=== PATIENT | female | born 1990 | race Two or more races ===

== ENCOUNTER 2017-01-17 18:53 | Emergency (ER) | payer SELFPAY ==
[~2017-01-17] VITALS: Ht 160 cm; Wt 86.2 kg
[~2017-01-17 18:53] MED LIST: CEPH-264 PO; CIPR500T94 PO; HYDR-971 PO; NAPR500T8 PO; PHEN-318 PO; PNV1TABL25 PO; PROM25TA10 PO; TAMS0.4C97 PO
--- NOTE | 2017-01-17 20:22 | PHYS DOC ---
Past Medical History Past Medical History: No Pertinent History, UTI Past Surgical History: No Surgical History Alcohol Use: None Drug Use: None Adult General Chief Complaint Chief Complaint: NEURO SYMPTOMS/DEFICITS [facility] HPI Patient is a 26 year old presents with right-sided paresthesias to her face and upper shoulder. Patient states the symptoms started yesterday and have progressively gotten worse today. Patient states she feels like her right upper face is numb from a dental procedure. Patient denies any facial weakness or extremity weakness. She denies any chest pain or shortness of breath. Patient has no other complaints. Patient has no history of stroke. Pertinent exam findings: Decreased sensation to her right side of the face forehead sparing and upper right shoulder ED course: 1800: CBC, CMP, CT head 2104: Updated the patient on the lab results and CT results and she states that her numbness on her right face is improving. Recommended admission however the patient declined understanding all risks including and disability related to go home and follow-up with her PCP. Patient states the symptoms are worse she 'll return to the emergency room. Pertinent results: CT the head negative ED decision-making: After reviewing the chart, chief complaint, past medical history, history of present illness, physical exam, lab results, radiology results I do not believe the patient's having an acute CVA or emergent medical contidion requiring further workup and admission at this time. Patient is having paresthesias to right toe the face and right shoulder of unknown significance. On reexamination there seem to be improving and recommended admission however the patient declined understanding all risks including and disability. Recommend patient follow PCP in 1-2 days. Additional verbal discharge instructions were provided to the patient and that if symptoms get worse or any new symptoms arise or worsen to the patient she is return to emergency room immediately. Review of Systems Review of Systems Constitutional: Denies fever or chills [] Eyes: Denies change in visual acuity, redness, or eye pain [] HENT: Denies nasal congestion or sore throat [] Respiratory: Denies cough or shortness of breath [] Cardiovascular: No additional information not addressed in HPI [] GI: Denies abdominal pain, nausea, vomiting, bloody stools or diarrhea [] : Denies dysuria or hematuria [] Musculoskeletal: Denies back pain or joint pain [] Integument: Denies rash or skin lesions [] Neurologic: Paresthesias to the right side of her face and upper extremity Allergies Allergies Allergies Coded Allergies Type Severity Reaction Last Updated Verified No Known Drug Allergies 12/13/14 No Physical Exam Physical Exam Constitutional: Well developed, well nourished, no acute distress, non-toxic appearance. [] HENT: Normocephalic, atraumatic, bilateral external ears normal, oropharynx moist, no oral exudates, nose normal. [] Eyes: PERRLA, EOMI, conjunctiva normal, no discharge. [] Neck: Normal range of motion, no tenderness, supple, no stridor. [] Cardiovascular:Heart rate regular rhythm, no murmur [] Lungs & Thorax: Bilateral breath sounds clear to auscultation [] Abdomen: Bowel sounds normal, soft, no tenderness, no masses, no pulsatile masses. [] Skin: Warm, dry, no erythema, no rash. [] Back: No tenderness, no CVA tenderness. [] Extremities: No tenderness, no cyanosis, no clubbing, ROM intact, no edema. [] Neurologic: Alert and oriented X 3, normal motor function, Decreased sensation to her right side of the face forehead sparing and upper right shoulder, no focal deficits noted. [] Psychologic: Affect normal, judgement normal, mood normal. [] Current Patient Data Vital Signs Vital Signs Date Time Temp Pulse Resp B/P (MAP) Pulse Ox O2 Delivery O2 Flow Rate FiO2 01/17/17 21:10 86 136/68 (90) 100 01/17/17 20:13 Room Air 01/17/17 19:30 98.2 18 98.2 Lab Values Laboratory Tests Test 01/17/17 18:50 01/17/17 19:40 01/17/17 19:46 POC Urine HCG, Qualitative Hcg negative (Negative) Urine Collection Type Unknown Urine Color Yellow Urine Clarity Clear Urine pH 7.5 Urine Specific Boyle 1.010 Urine Protein Negative mg/dL (NEG-TRACE) Urine Glucose (UA) Negative mg/dL (NEG) Urine Ketones (Stick) Negative mg/dL (NEG) Urine Blood Negative (NEG) Urine Nitrite Negative (NEG) Urine Bilirubin Negative (NEG) Urine Urobilinogen Dipstick 0.2 mg/dL (0.2 mg/dL) Urine Leukocyte Esterase Moderate (NEG) Urine RBC 0 /HPF (0-2) Urine WBC 11-20 /HPF (0-4) Urine Squamous Epithelial Cells Many /LPF Urine Bacteria Many /HPF (0-FEW) White Blood Count 10.5 x10^3/uL (4.0-11.0) Red Blood Count 4.56 x10^6/uL (3.50-5.40) Hemoglobin 13.4 g/dL (12.0-15.5) Hematocrit 39.0 % (36.0-47.0) Mean Corpuscular Volume 86 fL (79-100) Mean Corpuscular Hemoglobin 29 pg (25-35) Mean Corpuscular Hemoglobin Concent 34 g/dL (31-37) Red Cell Distribution Width 14.7 % (11.5-14.5) H Platelet Count 293 x10^3/uL (140-400) Neutrophils (%) (Auto) 61 % (31-73) Lymphocytes (%) (Auto) 30 % (24-48) Monocytes (%) (Auto) 6 % (0-9) Eosinophils (%) (Auto) 3 % (0-3) Basophils (%) (Auto) 0 % (0-3) Neutrophils # (Auto) 6.4 x10^3uL (1.8-7.7) Lymphocytes # (Auto) 3.2 x10^3/uL (1.0-4.8) Monocytes # (Auto) 0.6 x10^3/uL (0.0-1.1) Eosinophils # (Auto) 0.3 x10^3/uL (0.0-0.7) Basophils # (Auto) 0.0 x10^3/uL (0.0-0.2) Sodium Level 139 mmol/L (136-145) Potassium Level 3.7 mmol/L (3.5-5.1) Chloride Level 103 mmol/L (98-107) Carbon Dioxide Level 25 mmol/L (21-32) Anion Gap 11 (6-14) Blood Urea Nitrogen 7 mg/dL (7-20) Creatinine 0.9 mg/dL (0.6-1.0) Estimated GFR (Cockcroft-Gault) 75.7 BUN/Creatinine Ratio 8 (6-20) Glucose Level 93 mg/dL (70-99) Calcium Level 9.0 mg/dL (8.5-10.1) Total Bilirubin 0.4 mg/dL (0.2-1.0) Aspartate Amino Transferase (AST) 18 U/L (15-37) Alanine Aminotransferase (ALT) 34 U/L (14-59) Alkaline Phosphatase 62 U/L (46-116) Total Protein 8.0 g/dL (6.4-8.2) Albumin 4.1 g/dL (3.4-5.0) Albumin/Globulin Ratio 1.1 (1.0-1.7) Laboratory Tests 01/17/17 19:46 Laboratory Tests 01/17/17 19:46 Microbiology 01/17/17 Urine Culture - Preliminary, Resulted 01/17/17 Urine Culture Result 1 (BRYCE) - Preliminary, Resulted EKG EKG [] Radiology/Procedures Radiology/Procedures CT head: FINDINGS no intracranial hemorrhage, mass, hydrocephalus, extra-axial fluid collections or infarction. No acute ischemic changes. Orbits, mastoids, paranasal sinuses and bones are unremarkable. IMPRESSION No acute intracranial CT abnormality. [] Course & Med Decision Making Course & Med Decision Making Pertinent Labs and Imaging studies reviewed. (See chart for details) [] Dragon Disclaimer Dragon Disclaimer This electronic medical record was generated, in whole or in part, using a voice recognition dictation system. Departure Departure Impression: Primary Impression: Paresthesias Disposition: 01 HOME, SELF-CARE Condition: IMPROVED Referrals: NO PCP (PCP) Patient Instructions: Paresthesia, [id number] Additional Instructions: Please follow-up with her doctor in 1-2 days and his symptoms get worse please return to emergency room immediately. TONI GUZMAN DO January 17, 2017 20:22
[2017-01-17 20:24] LABS: BASO % 0 % (0-3); EOS % 3 % (0-3); HEMOGLOBIN 13.4 g/dL (12.0-15.5); LYMPH # 3.2 x10^3/uL (1.0-4.8); LYMPH % 30 % (24-48); MEAN CORPUSCULAR HEMOGLOBIN 29 pg (25-35); MEAN CORPUSCULAR HGB CONC 34 g/dL (31-37); MEAN CORPUSCULAR VOLUME 86 fL (79-100); MONO % 6 % (0-9); NEUT % 61 % (31-73); PLATELET COUNT 293 x10^3/uL (140-400); RED BLOOD COUNT 4.56 x10^6/uL (3.50-5.40); RED CELL DISTRIBUTION WIDTH 14.7 % (11.5-14.5); WHITE BLOOD COUNT 10.5 x10^3/uL (4.0-11.0)
[2017-01-17 20:25] LABS: BILIRUBIN,URINE NEGATIVE (NEG); GLUCOSE,URINE NEGATIVE (NEG); NITRITE,URINE NEGATIVE (NEG); PH,URINE 7.5; PROTEIN,URINE NEGATIVE (NEG-TRACE); UROBILINOGEN,URINE 0.2 mg/dL (0.2 mg/dL)
[2017-01-17 20:32] LABS: CREATININE 0.9 mg/dL (0.6-1.0); GFR 75.7; POTASSIUM 3.7 mmol/L (3.5-5.1)
[2017-01-17 20:33] LABS: BACTERIA,URINE MANY /HPF (0-FEW); RBC,URINE 0 /HPF (0-2); SQUAMOUS EPITHELIAL CELL,UR MANY /LPF
[2017-01-17 20:36] LABS: ALBUMIN 4.1 g/dL (3.4-5.0); ALBUMIN/GLOBULIN RATIO 1.1 (1.0-1.7); TOTAL BILIRUBIN 0.4 mg/dL (0.2-1.0)
--- NOTE | 2017-01-17 20:37 | RAD ---
PROCEDURE CT head without contrast HISTORY Right side paresthesias TECHNIQUE Exposure: One or more of the following individualized dose reduction techniques were utilized for this exam: 1. Automated exposure control. 2. Adjustment of the mA and/or kV according to patient size. 3. Use of iterative reconstruction technique. [address] imaging skullbase to vertex COMPARISON No prior FINDINGS no intracranial hemorrhage, mass, hydrocephalus, extra-axial fluid collections or infarction. No acute ischemic changes. Orbits, mastoids, paranasal sinuses and bones are unremarkable. IMPRESSION No acute intracranial CT abnormality. Electronically signed by: Rubio Duran MD (January 17, 2017 20:36:23)
[2017-01-17 21:10] VITALS: BP 136/68
== END 2017-01-17 21:33 | disposition home or self-care (01) ==
LOC: ER 18:53
DX: R20.9 Unspecified disturbances of skin sensation (principal)
CPT/HCPCS: 36415; 70450; 80053; 81001; 81025; 84703; 85027; 87086; 99285-25

== ENCOUNTER 2017-05-18 20:27 | Emergency (ER) | payer SELFPAY ==
[~2017-05-18] VITALS: Ht 157.5 cm; Wt 95.7 kg
[2017-05-18] MEDS ORDERED: IV NORMAL SALINE 1000ML BAG 1,000 ML IV ONE ×2 (21:15→22:45)
[2017-05-18] MEDS ORDERED: DEXAMETHASONE SOD PHOS 20 MG/5 ML VIAL. IM ONE (21:30)
[2017-05-18] MEDS ORDERED: AZITHRMYCN 500MG IVPB FOR OMNI 250 ML IV ONE (21:30)
--- NOTE | 2017-05-18 21:47 | PHYS DOC ---
Past Medical History Past Medical History: No Pertinent History, UTI Past Surgical History: No Surgical History Alcohol Use: None Drug Use: None Adult General Chief Complaint Chief Complaint: MULTIPLE COMPLAINTS HPI HPI Patient is a 26 year old female who presents with sore throat. She states this started yesterday. She states is very difficult for her to swallow anything. She denies any trismus, she states she's felt feverish at home however she's not taken her temperature. She denies any nausea or vomiting. She states it's difficult for her to eat anything. She is swallowing her own saliva. Denies any past medical history, allergies medications are currently on any medications. Review of Systems Review of Systems Constitutional: Denies fever or chills [] Eyes: Denies change in visual acuity, redness, or eye pain [] HENT: Denies nasal congestion or positive for sore throat [] Respiratory: Denies cough or shortness of breath [] Cardiovascular: No additional information not addressed in HPI [] GI: Denies abdominal pain, nausea, vomiting, bloody stools or diarrhea [] : Denies dysuria or hematuria [] Musculoskeletal: Denies back pain or joint pain [] Integument: Denies rash or skin lesions [] Neurologic: Denies headache, focal weakness or sensory changes [] Endocrine: Denies polyuria or polydipsia [] Current Medications Current Medications Current Medications Medications (Trade) Dose Ordered Sig/Bigg Start Time Stop Time Status Last Admin Dose Admin Azithromycin 250 ml @ 250 mls/hr 1X ONCE 05/18/17 21:30 05/18/17 22:29 DC 05/18/17 21:39 250 MLS/HR Dexamethasone Sodium Phosphate (Decadron) 10 mg 1X ONCE 05/18/17 21:30 05/18/17 21:31 DC 05/18/17 21:39 10 MG Info (Do NOT chart on this entry -- for MONITORING) 1 each PRN DAILY PRN 05/19/17 00:15 05/21/17 00:14 Iohexol (Omnipaque 300 Mg/ml) 70 ml 1X ONCE 05/19/17 00:15 05/19/17 00:16 DC 05/19/17 00:13 70 ML Ondansetron HCl (Zofran) 4 mg 1X ONCE 05/18/17 23:15 05/18/17 23:16 DC 05/18/17 23:07 4 MG Sodium Chloride 1,000 ml @ 1,000 mls/hr 1X ONCE 05/18/17 22:45 05/18/17 23:44 DC 05/18/17 23:04 1,000 MLS/HR Allergies Allergies Allergies Coded Allergies Type Severity Reaction Last Updated Verified No Known Drug Allergies 12/13/14 No Physical Exam Physical Exam Constitutional: Well developed, well nourished, no acute distress, non-toxic appearance. [] HENT: Normocephalic, atraumatic, bilateral external ears normal, oropharynx moist, no oral exudates, nose normal. Bilateral tonsils enlarged with white exudates noted in posterior pharynx Eyes: PERRLA, EOMI, conjunctiva normal, no discharge. [] Neck: Normal range of motion, no tenderness, supple, no stridor. Anterior cervical lymphadenopathy noted Cardiovascular:Heart rate regular rhythm, no murmur [] Lungs & Thorax: Bilateral breath sounds clear to auscultation [] Abdomen: Bowel sounds normal, soft, no tenderness, no masses, no pulsatile masses. [] Skin: Warm, dry, no erythema, no rash. [] Back: No tenderness, no CVA tenderness. [] Extremities: No tenderness, no cyanosis, no clubbing, ROM intact, no edema. [] Neurologic: Alert and oriented X 3, normal motor function, normal sensory function, no focal deficits noted. [] Psychologic: Affect normal, judgement normal, mood normal. [] Current Patient Data Vital Signs Vital Signs Date Time Temp Pulse Resp B/P (MAP) Pulse Ox O2 Delivery O2 Flow Rate FiO2 05/19/17 00:11 114 149/76 (100) Room Air 05/18/17 23:35 99 05/18/17 23:05 98.9 18 98.9 Lab Values Laboratory Tests Test 05/18/17 19:54 05/18/17 20:43 POC Urine HCG, Qualitative Hcg negative (Negative) White Blood Count 26.9 x10^3/uL (4.0-11.0) H Red Blood Count 4.63 x10^6/uL (3.50-5.40) Hemoglobin 13.0 g/dL (12.0-15.5) Hematocrit 39.9 % (36.0-47.0) Mean Corpuscular Volume 86 fL (79-100) Mean Corpuscular Hemoglobin 28 pg (25-35) Mean Corpuscular Hemoglobin Concent 33 g/dL (31-37) Red Cell Distribution Width 15.3 % (11.5-14.5) H Platelet Count 234 x10^3/uL (140-400) Neutrophils (%) (Auto) 89 % (31-73) H Lymphocytes (%) (Auto) 4 % (24-48) L Monocytes (%) (Auto) 7 % (0-9) Eosinophils (%) (Auto) 0 % (0-3) Basophils (%) (Auto) 0 % (0-3) Neutrophils # (Auto) 23.9 x10^3uL (1.8-7.7) H Lymphocytes # (Auto) 1.1 x10^3/uL (1.0-4.8) Monocytes # (Auto) 1.8 x10^3/uL (0.0-1.1) H Eosinophils # (Auto) 0.1 x10^3/uL (0.0-0.7) Basophils # (Auto) 0.1 x10^3/uL (0.0-0.2) Segmented Neutrophils % 58 % (35-66) Band Neutrophils % 30 % (0-9) H Lymphocytes % 10 % (24-48) L Monocytes % 2 % (0-10) Platelet Estimate Adequate (ADEQUATE) Sodium Level 138 mmol/L (136-145) Potassium Level 4.6 mmol/L (3.5-5.1) Chloride Level 101 mmol/L (98-107) Carbon Dioxide Level 22 mmol/L (21-32) Anion Gap 15 (6-14) H Blood Urea Nitrogen 7 mg/dL (7-20) Creatinine 0.7 mg/dL (0.6-1.0) Estimated GFR (Cockcroft-Gault) 101.1 BUN/Creatinine Ratio 10 (6-20) Glucose Level 122 mg/dL (70-99) H Calcium Level 9.2 mg/dL (8.5-10.1) Total Bilirubin 0.7 mg/dL (0.2-1.0) Aspartate Amino Transferase (AST) 30 U/L (15-37) Alanine Aminotransferase (ALT) 40 U/L (14-59) Alkaline Phosphatase 84 U/L (46-116) Total Protein 7.7 g/dL (6.4-8.2) Albumin 4.0 g/dL (3.4-5.0) Albumin/Globulin Ratio 1.1 (1.0-1.7) Laboratory Tests 05/18/17 20:43 Laboratory Tests 05/18/17 20:43 EKG EKG [] Radiology/Procedures Radiology/Procedures [facility] [address] [place] [address] IMAGING REPORT Signed PATIENT: YOLY DANG ACCOUNT: [id number] : 1990 LOCATION: ER AGE: 26 SEX: F EXAM STATUS: REG ER ORD. PHYSICIAN: THALIA WHITLEY MD REASON: sore throat PROCEDURE: CT SOFT TISSUE NECK W/CONTRAST INDICATION: sore throat; Omni 300, 70ml COMPARISON: None. TECHNIQUE: Axial CT images obtained through the neck soft tissues with contrast. One or more of the following individualized dose reduction techniques were utilized for this examination: 1. Automated exposure control; 2. Adjustment of the mA and/or kV according to patient size; 3. Use of iterative reconstruction technique. FINDINGS: No prevertebral soft tissue swelling. The epiglottis is not enlarged. There are some scattered prominent lymph nodes within the neck. Enlargement of the pharyngeal and palatine tonsils with narrowing of the airway. There is near complete effacement of the oropharynx/nasopharynx region secondary to enlarged tonsil. No definite drainable fluid collection at this time IMPRESSION: Enlargement of the tonsils which can be seen with tonsillitis or tonsillar hyperplasia. No definite drainable fluid collection at this time. This causes narrowing of the airway and near complete effacement of the nasopharynx/oropharynx. Electronically signed by: Rina Jung MD (05/19/2017 12:39 AM) [facility] DICTATED and SIGNED BY: RINA JUNG MD DATE: 05/19/17 0027 CC: THALIA WHITLEY MD; NO PCP ~ Impressions: Tonsillitis Course & Med Decision Making Course & Med Decision Making Pertinent Labs and Imaging studies reviewed. (See chart for details) Patient is a fever but she's been taking Tylenol. She is tachycardic she received 2 L of fluids and her tachycardia has not resolved. She does have leukocytosis of 27,000 with bands. I scanned her neck to make sure there was an abscess and it shows near touching of her tonsils I spoke with radiology she states that if it does get worse she will have compromise of her airway. We do not have ENT at this facility I therefore spoke with [facility] is accepting the patient. The patient being transferred via EMS in stable condition. She has received 10 mg Decadron in addition to 500 mg azithromycin and was watched for close to 4 hours for a side transfer her, secondary to her not improving as much is anticipated. She is handling her secretions. Dragon Disclaimer Dragon Disclaimer This electronic medical record was generated, in whole or in part, using a voice recognition dictation system. Departure Departure Impression: Primary Impression: Tonsillitis Disposition: 02 TRANSFER [facility] Condition: STABLE Referrals: NO PCP (PCP) THALIA WHITLEY MD May 18, 2017 21:46
[2017-05-18] MEDS ORDERED: ONDANSETRON PF 4 MG/2 ML VIAL. ONE (22:39)
[2017-05-18 22:58] LABS: BASO # 0.1 x10^3/uL (0.0-0.2); BASO % 0 % (0-3); EOS % 0 % (0-3); HEMATOCRIT 39.9 % (36.0-47.0); LYMPH # 1.1 x10^3/uL (1.0-4.8); LYMPH % 4 % (24-48); MEAN CORPUSCULAR HEMOGLOBIN 28 pg (25-35); MEAN CORPUSCULAR HGB CONC 33 g/dL (31-37); MEAN CORPUSCULAR VOLUME 86 fL (79-100); MONO % 7 % (0-9); NEUT % 89 % (31-73); PLATELET COUNT 234 x10^3/uL (140-400); RED BLOOD COUNT 4.63 x10^6/uL (3.50-5.40); RED CELL DISTRIBUTION WIDTH 15.3 % (11.5-14.5); WHITE BLOOD COUNT 26.9 x10^3/uL (4.0-11.0)
[2017-05-18 23:12] LABS: CALCIUM 9.2 mg/dL (8.5-10.1); CREATININE 0.7 mg/dL (0.6-1.0); GFR 101.1; POTASSIUM 4.6 mmol/L (3.5-5.1)
[2017-05-18 23:14] LABS: ALBUMIN/GLOBULIN RATIO 1.1 (1.0-1.7); TOTAL BILIRUBIN 0.7 mg/dL (0.2-1.0); TOTAL PROTEIN 7.7 g/dL (6.4-8.2)
[2017-05-18] MEDS ORDERED: ONDANSETRON PF 4 MG/2 ML VIAL. IV ONE (23:15)
[2017-05-18 23:18] LABS: PLT ESTIMATE ADEQUATE (ADEQUATE)
[2017-05-19] MEDS ORDERED: IOHEXOL 300 MG/ML 75 ML VIAL IV ONE (00:15)
[2017-05-19] MEDS ORDERED: CONTRAST GIVEN MC PRN (00:15)
--- NOTE | 2017-05-19 00:43 | RAD ---
INDICATION: sore throat; Omni 300, 70ml COMPARISON: None. TECHNIQUE: Axial CT images obtained through the neck soft tissues with contrast. One or more of the following individualized dose reduction techniques were utilized for this examination: 1. Automated exposure control; 2. Adjustment of the mA and/or kV according to patient size; 3. Use of iterative reconstruction technique. FINDINGS: No prevertebral soft tissue swelling. The epiglottis is not enlarged. There are some scattered prominent lymph nodes within the neck. Enlargement of the pharyngeal and palatine tonsils with narrowing of the airway. There is near complete effacement of the oropharynx/nasopharynx region secondary to enlarged tonsil. No definite drainable fluid collection at this time IMPRESSION: Enlargement of the tonsils which can be seen with tonsillitis or tonsillar hyperplasia. No definite drainable fluid collection at this time. This causes narrowing of the airway and near complete effacement of the nasopharynx/oropharynx. Electronically signed by: Nate Jung MD (05/19/2017 12:39 AM) [facility]
[2017-05-19 01:00] VITALS: BP 177/82
[2017-05-19 10:15] LABS: NEGATIVE OBC STREP NEG; POSITIVE OBC STREP POS
== END 2017-05-19 02:31 | disposition short-term general hospital (02) ==
LOC: ER 20:27
DX: J03.90 Acute tonsillitis, unspecified (principal); R00.0 Tachycardia, unspecified; D72.829 Elevated white blood cell count, unspecified
CPT/HCPCS: 36415; 70491; 80053; 81025; 85007; 85025; 87070; 87880; 96365; 96372; 96375; 99285; J0456; J1100; J2405; J7030; Q9967; 96361

== ENCOUNTER 2018-02-17 18:08 | Inpatient (IN) | payer SELFPAY ==
[2018-02-17 19:52] LABS: ADD MAN DIFF? NO
[2018-02-17 19:57] LABS: BILIRUBIN,URINE NEGATIVE (NEG); CLARITY,URINE CLEAR; COLOR,URINE YELLOW; GLUCOSE,URINE NEGATIVE (NEG); NITRITE,URINE NEGATIVE (NEG); PROTEIN,URINE 30 mg/dL (NEG-TRACE); UROBILINOGEN,URINE 0.2 mg/dL (0.2 mg/dL)
[2018-02-17 19:58] LABS: BASO # 0.1 x10^3/uL (0.0-0.2); BASO % 1 % (0-3); EOS # 0.2 x10^3/uL (0.0-0.7); EOS % 2 % (0-3); HEMATOCRIT 28.9 % (36.0-47.0); HEMOGLOBIN 9.7 g/dL (12.0-15.5); LYMPH % 22 % (24-48); MEAN CORPUSCULAR HEMOGLOBIN 27 pg (25-35); MEAN CORPUSCULAR HGB CONC 33 g/dL (31-37); MEAN CORPUSCULAR VOLUME 80 fL (79-100); MONO # 0.7 x10^3/uL (0.0-1.1); MONO % 7 % (0-9); NEUT # 6.4 x10^3uL (1.8-7.7); NEUT % 68 % (31-73); PLATELET COUNT 323 x10^3/uL (140-400); RED CELL DISTRIBUTION WIDTH 15.9 % (11.5-14.5); WHITE BLOOD COUNT 9.4 x10^3/uL (4.0-11.0)
[2018-02-17 20:03] LABS: BACTERIA,URINE MODERATE /HPF (0-FEW); RBC,URINE TNTC /HPF (0-2); SQUAMOUS EPITHELIAL CELL,UR MOD /LPF; WBC,URINE >40 /HPF (0-4)
[2018-02-17 20:17] LABS: ANION GAP 11 (6-14); BLOOD UREA NITROGEN 15 mg/dL (7-20); BUN/CREATININE RATIO 17 (6-20); CALCIUM 9.1 mg/dL (8.5-10.1); CARBON DIOXIDE 23 mmol/L (21-32); CHLORIDE 108 mmol/L (98-107); CREATININE 0.9 mg/dL (0.6-1.0); GFR 75.1; GLUCOSE 88 mg/dL (70-99); SODIUM 142 mmol/L (136-145)
[2018-02-17 20:26] LABS: ALBUMIN 2.7 g/dL (3.4-5.0); ALBUMIN/GLOBULIN RATIO 0.6 (1.0-1.7); ALK PHOS 74 U/L (46-116); ALT (SGPT) 36 U/L (14-59); AST (SGOT) 14 U/L (15-37); LACTATE DEHYDROGENASE 171 U/L (81-234); TOTAL BILIRUBIN 0.2 mg/dL (0.2-1.0); TOTAL PROTEIN 7.3 g/dL (6.4-8.2); URIC ACID 6.2 mg/dL (2.6-6.0)
[2018-02-17] MEDS: MORPHINE SULFATE 4 MG/ML DISP.SYRIN. IV ×2 (20:49→22:00)
[2018-02-17] MEDS: MAGNESIUM SULFATE 4GM 100 ML IV (20:49)
[2018-02-17] MEDS: IV NORMAL SALINE 500ML BAG 500 ML IV (20:58)
[2018-02-17] MEDS ORDERED: CONTRAST GIVEN. MC (21:00)
[2018-02-17] MEDS: IOHEXOL 300 MG/ML 100ML VIAL. IV (21:30)
[2018-02-17] MEDS ORDERED: MORPHINE SULFATE 4 MG/ML DISP.SYRIN. IV (21:30)
[2018-02-17] MEDS ORDERED: ONDANSETRON PF 4 MG/2 ML VIAL. IV (21:30)
[2018-02-17 21:51] LABS: TROPONINI < 0.017 ng/mL (0.000-0.055)
[2018-02-17 21:55] LABS: NT-PRO BNP 218 pg/mL (0-124)
[2018-02-17] MEDS ORDERED: MAGNESIUM SULFATE 4GM 100 ML IV (22:00)
[2018-02-17] MEDS: ACETAMINOPHEN 325 MG TABLET. PO (22:21)
[2018-02-17] MEDS ORDERED: MAGNESIUM SULFATE 2GM 50 ML IV (22:30)
[2018-02-17] MEDS: IV NORMAL SALINE 1000ML BAG 1,000 ML IV (22:48)
[2018-02-17] MEDS: MAGNESIUM SULFATE 20GM 500 ML IV (22:48)
[2018-02-18] MEDS: ACETAMINOPHEN 325 MG TABLET. PO ×2 (04:00→17:54)
[2018-02-18 04:46] LABS: ADD MAN DIFF? NO
[2018-02-18 04:52] LABS: BASO % 0 % (0-3); EOS # 0.2 x10^3/uL (0.0-0.7); EOS % 3 % (0-3); HEMATOCRIT 26.9 % (36.0-47.0); LYMPH % 25 % (24-48); MEAN CORPUSCULAR HEMOGLOBIN 27 pg (25-35); MEAN CORPUSCULAR HGB CONC 34 g/dL (31-37); MEAN CORPUSCULAR VOLUME 80 fL (79-100); MONO # 0.6 x10^3/uL (0.0-1.1); MONO % 8 % (0-9); NEUT # 5.3 x10^3uL (1.8-7.7); NEUT % 65 % (31-73); PLATELET COUNT 281 x10^3/uL (140-400); RED BLOOD COUNT 3.35 x10^6/uL (3.50-5.40); RED CELL DISTRIBUTION WIDTH 16.1 % (11.5-14.5); WHITE BLOOD COUNT 8.1 x10^3/uL (4.0-11.0)
[2018-02-18 05:34] LABS: ALBUMIN 2.5 g/dL (3.4-5.0); ALBUMIN/GLOBULIN RATIO 0.6 (1.0-1.7); ALK PHOS 67 U/L (46-116); ALT (SGPT) 31 U/L (14-59); ANION GAP 11 (6-14); AST (SGOT) 16 U/L (15-37); BLOOD UREA NITROGEN 12 mg/dL (7-20); BUN/CREATININE RATIO 20 (6-20); CALCIUM 8.2 mg/dL (8.5-10.1); CARBON DIOXIDE 22 mmol/L (21-32); CHLORIDE 106 mmol/L (98-107); CREATININE 0.6 mg/dL (0.6-1.0); GFR 119.9; GLUCOSE 85 mg/dL (70-99); POTASSIUM 3.7 mmol/L (3.5-5.1); SODIUM 139 mmol/L (136-145); TOTAL BILIRUBIN 0.3 mg/dL (0.2-1.0); TOTAL PROTEIN 6.5 g/dL (6.4-8.2)
[2018-02-18] MEDS: oxyCODONE/APAP 5/325 1 TAB TABLET PO ×4 (08:21→19:30)
[2018-02-18] MEDS: MAGNESIUM SULFATE 20GM 500 ML IV ×2 (08:51→19:18)
[2018-02-18] MEDS: IBUPROFEN 800 MG TABLET. PO ×2 (13:54→22:10)
[2018-02-18] MEDS: BENZONATATE 100 MG CAPSULE. PO ×2 (16:22→22:10)
[2018-02-18] MEDS: IV NORMAL SALINE 1000ML BAG 1,000 ML IV (16:24)
[2018-02-19] MEDS: MAGNESIUM SULFATE 20GM 500 ML IV (05:18)
[2018-02-19] MEDS: IBUPROFEN 800 MG TABLET. PO (05:18)
[2018-02-19] MEDS: oxyCODONE/APAP 5/325 1 TAB TABLET PO ×2 (05:19→09:52)
[2018-02-19] MEDS: BENZONATATE 100 MG CAPSULE. PO (10:19)
[2018-02-20 02:19] LABS: HEMOGLOBIN A1C 5.4 % (4.8-5.6)
== END 2018-02-19 13:10 | disposition home or self-care (01) | DRG 776 ==
LOC: ER 18:08 → 3 NORTH 21:10
DX: O14.95 Unspecified pre-eclampsia, complicating the puerperium (principal); E11.9 Type 2 diabetes mellitus without complications; O24.33 Unspecified pre-existing diabetes mellitus in the puerperium
CPT/HCPCS: 36415; 71046; 71275; 80053; 81001; 83036; 83615; 83880; 84484; 84550; 85025; 87086; 93005; 93306; 96365; 99285-25; J2270; J3475; J7030; J7040; Q9967

== ENCOUNTER 2018-02-22 02:00 | Emergency (ER) | payer SELFPAY ==
[2018-02-22 03:31] LABS: ADD MAN DIFF? NO
[2018-02-22 03:36] LABS: BASO % 1 % (0-3); EOS # 0.3 x10^3/uL (0.0-0.7); EOS % 4 % (0-3); HEMATOCRIT 32.6 % (36.0-47.0); HEMOGLOBIN 10.7 g/dL (12.0-15.5); LYMPH # 2.5 x10^3/uL (1.0-4.8); LYMPH % 31 % (24-48); MEAN CORPUSCULAR HEMOGLOBIN 27 pg (25-35); MEAN CORPUSCULAR HGB CONC 33 g/dL (31-37); MEAN CORPUSCULAR VOLUME 81 fL (79-100); MONO # 0.6 x10^3/uL (0.0-1.1); MONO % 8 % (0-9); NEUT # 4.7 x10^3uL (1.8-7.7); NEUT % 57 % (31-73); PLATELET COUNT 352 x10^3/uL (140-400); RED BLOOD COUNT 4.05 x10^6/uL (3.50-5.40); RED CELL DISTRIBUTION WIDTH 16.1 % (11.5-14.5); WHITE BLOOD COUNT 8.2 x10^3/uL (4.0-11.0)
[2018-02-22 03:48] LABS: ANION GAP 12 (6-14); BLOOD UREA NITROGEN 15 mg/dL (7-20); CALCIUM 9.4 mg/dL (8.5-10.1); CARBON DIOXIDE 25 mmol/L (21-32); CHLORIDE 103 mmol/L (98-107); CREATININE 0.9 mg/dL (0.6-1.0); GFR 75.1; GLUCOSE 92 mg/dL (70-99); MAGNESIUM 1.8 mg/dL (1.8-2.4); POTASSIUM 4.4 mmol/L (3.5-5.1); SODIUM 140 mmol/L (136-145)
[2018-02-22] MEDS: MAGNESIUM SULFATE 2GM 50 ML IV (03:52)
[2018-02-22] MEDS: MORPHINE SULFATE 4 MG/ML DISP.SYRIN. IV (03:53)
[2018-02-22 03:56] LABS: TROPONINI < 0.017 ng/mL (0.000-0.055)
[2018-02-22 04:12] LABS: BILIRUBIN,URINE NEGATIVE (NEG); CLARITY,URINE CLEAR; COLOR,URINE YELLOW; GLUCOSE,URINE NEGATIVE (NEG); NITRITE,URINE NEGATIVE (NEG); PH,URINE 6.5; PROTEIN,URINE NEGATIVE (NEG-TRACE); UROBILINOGEN,URINE 0.2 mg/dL (0.2 mg/dL)
[2018-02-22] MEDS: hydrALAZINE 20 MG/ML VIAL. IVP (04:30)
[2018-02-22 04:35] LABS: BACTERIA,URINE FEW /HPF (0-FEW); RBC,URINE RARE /HPF (0-2); SQUAMOUS EPITHELIAL CELL,UR FEW /LPF
[2018-02-22 04:40] LABS: ALBUMIN 3.2 g/dL (3.4-5.0); ALK PHOS 71 U/L (46-116); ALT (SGPT) 37 U/L (14-59); AST (SGOT) 18 U/L (15-37); DIRECT BILIRUBIN < 0.1 mg/dL (0.0-0.2); TOTAL BILIRUBIN 0.2 mg/dL (0.2-1.0); TOTAL PROTEIN 7.5 g/dL (6.4-8.2)
== END 2018-02-22 06:24 | disposition home or self-care (01) ==
LOC: ER 02:00
DX: R07.89 Other chest pain (principal); I10 Essential (primary) hypertension; R60.0 Localized edema; R80.9 Proteinuria, unspecified
CPT/HCPCS: 36415; 71045; 80048; 80076; 81001; 83735; 84484; 85025; 93005; 96365; 96366; 96375; 96376; 99285-25; J2270; J3475

== ENCOUNTER 2018-05-19 21:43 | Emergency (ER) | payer SELFPAY ==
[~2018-05-19] VITALS: Ht 157.5 cm; Wt 95.3 kg
[~2018-05-19 21:43] MED LIST changes: +ONDA4TAB12 PO
[2018-05-19 22:00] VITALS: BP 184/100
[2018-05-19] MEDS ORDERED: PROAIR HFA8.5 GM INH (22:29)
[2018-05-19] MEDS ORDERED: BENZ100C PO (22:29)
[2018-05-19] MEDS ORDERED: AZIT250T6 PO (22:29)
--- NOTE | 2018-05-19 22:30 | PHYS DOC ---
Past Medical History Past Medical History: No Pertinent History, Hypertension, UTI Past Surgical History: Alcohol Use: None Drug Use: None Adult General Chief Complaint Chief Complaint: COUGH HPI HPI Patient is a 27 year old Female who presents with cough, throat pain, chest pain, soa, and fever x 2 weeks. Patient has been using ibuprofen for pain and fever. Review of Systems Review of Systems Constitutional: Fever and chills [] Eyes: Denies change in visual acuity, redness, or eye pain [] HENT: Denies nasal congestion. Sore throat [] Respiratory: Cough and shortness of breath [] Cardiovascular: No additional information not addressed in HPI [] GI: Denies abdominal pain, nausea, vomiting, bloody stools or diarrhea [] : Denies dysuria or hematuria [] Musculoskeletal: Denies back pain or joint pain [] Integument: Denies rash or skin lesions [] Neurologic: Denies headache, focal weakness or sensory changes [] Endocrine: Denies polyuria or polydipsia [] All other systems were reviewed and found to be within normal limits, except as documented in this note. Current Medications Current Medications Current Medications Medications (Trade) Dose Ordered Sig/Bigg Start Time Stop Time Status Last Admin Dose Admin Albuterol/ Ipratropium (Duoneb) 3 ml 1X ONCE 05/19/18 22:30 05/19/18 22:36 DC Dexamethasone (Decadron) 4 mg 1X ONCE 05/19/18 22:30 05/19/18 22:36 DC 05/19/18 23:04 4 MG Allergies Allergies Allergies Coded Allergies Type Severity Reaction Last Updated Verified No Known Drug Allergies 12/13/14 No Physical Exam Physical Exam Constitutional: Well developed, well nourished, no acute distress, non-toxic appearance. [] HENT: Normocephalic, atraumatic, bilateral external ears normal, oropharynx moist, no oral exudates, nose normal. [] Eyes: PERRLA, EOMI, conjunctiva normal, no discharge. [] Neck: Normal range of motion, no tenderness, supple, no stridor. [] Cardiovascular:Heart rate regular rhythm, no murmur [] Lungs & Thorax: Bilateral breath sounds inspiratory and expiratory wheezes throughout. [] Abdomen: Bowel sounds normal, soft, no tenderness, no masses, no pulsatile masses. [] Skin: Warm, dry, no erythema, no rash. [] Back: No tenderness, no CVA tenderness. [] Extremities: No tenderness, no cyanosis, no clubbing, ROM intact, no edema. [] Neurologic: Alert and oriented X 3, normal motor function, normal sensory function, no focal deficits noted. [] Psychologic: Affect normal, judgement normal, mood normal. [] Current Patient Data Vital Signs Vital Signs Date Time Temp Pulse Resp B/P (MAP) Pulse Ox O2 Delivery O2 Flow Rate FiO2 05/19/18 22:00 97.8 74 20 184/100 (128) 98 Room Air 97.8 EKG EKG [] Radiology/Procedures Radiology/Procedures CHEST X RAY[] Impressions: NO ACUTE FINDINGS Course & Med Decision Making Course & Med Decision Making Patient is a 27 year old Female who presents with cough, throat pain, chest pain, soa, and fever x 2 weeks. Patient has been using ibuprofen for pain and fever. Patients last period was in February and she also has the Implanon. Upon examination patient has expiratory wheezes in all lung lobes. Patient speaks in full sentences. Patient denies nausea, vomiting, dizziness, headache, or abdominal pain. Patient throat is pink without exudates. Abdomen is soft and nontender. Bilateral tympanic membranes are pearly white. Patient has no sinus tenderness. There are no palpable lymph nodes. Patient is given [place], dexamethasone, and a DuoNeb in the ED today. Patient is given a prescription for Azithromycin, Tessalon Perles, and albuterol inhaler since her symptoms have been going on x 2 weeks and only getting worse. Patient should follow up with her primary care provider. [] Dragon Disclaimer Dragon Disclaimer This electronic medical record was generated, in whole or in part, using a voice recognition dictation system. Departure Departure Impression: Primary Impression: Bronchitis Disposition: 01 HOME, SELF-CARE Condition: STABLE Referrals: NO PCP (PCP) Patient Instructions: Acute Bronchitis Additional Instructions: Follow up with your primary care. Take all medications as prescribed. Scripts Albuterol Sulfate (PROAIR HFA INHALER) 8.5 Gm Hfa.aer.ad 1 PUFF INH PRN Q6HRS PRN for SHORTNESS OF BREATH for 7 Days, #1 INHALER 0 Refills Prov: NAYELI FREED [employer] 05/19/18 Benzonatate (TESSALON PERLE) 100 Mg Capsule 1 CAP PO TID, #21 CAP Prov: NAYELI FREED APRN 05/19/18 Azithromycin (AZITHROMYCIN TABLET) 250 Mg Tablet 1 PKG PO UD, #6 TAB Prov: NAYELI FREED APRN 05/19/18 NAYELI FREED APRN May 19, 2018 22:30
[2018-05-19] MEDS: DEXAMETHASONE 4 MG TABLET PO ONE (23:04)
--- NOTE | 2018-05-19 23:07 | RAD ---
PROCEDURE: CHEST PA LATERAL CLINICAL INDICATION: DRY COUGH, SOA, FEVER X2 WEEKS COMPARISON: 02/22/2018 FINDINGS: No pneumothorax identified. Cardiac and mediastinal contours unremarkable. No pulmonary consolidation or acute airspace disease. No acute osseous abnormalities identified. IMPRESSION: No pulmonary consolidation or acute airspace disease. Electronically signed by: Dontae Huizar DO (05/19/2018 11:03 PM) [facility]
[2018-05-19] MEDS: IPRATRPIUM/ALBUTEROL 0.5/2.5MG 3 ML NEBU. NEB ONE (23:22)
[2018-05-19] MEDS: HYDROcodone/APAP 5/325MG 1 TAB TABLET PO ONE (23:35)
== END 2018-05-19 23:38 | disposition home or self-care (01) ==
LOC: ER 21:43
DX: J40 Bronchitis, not specified as acute or chronic (principal); R07.0 Pain in throat; I10 Essential (primary) hypertension; Z87.440 Personal history of urinary (tract) infections
CPT/HCPCS: 71046; 94640; 99284; J7620; J8540

== ENCOUNTER 2018-10-23 09:30 | Emergency (ER) | payer SELFPAY ==
[~2018-10-23] VITALS: Ht 160 cm; Wt 95.3 kg
[~2018-10-23 09:30] MED LIST changes: +ALBU2.5V8 INH; +AZIT250T6 PO; +BENZ100C PO; +HYDR-3164 PO; -HYDR-971 PO
[2018-10-23 09:34] VITALS: BP 173/85
[2018-10-23 09:57] LABS: BILIRUBIN,URINE NEGATIVE (NEG); CLARITY,URINE CLEAR; COLOR,URINE YELLOW; NITRITE,URINE NEGATIVE (NEG); PROTEIN,URINE NEGATIVE (NEG-TRACE); UROBILINOGEN,URINE 0.2 mg/dL (0.2 mg/dL)
[2018-10-23 10:18] LABS: SQUAMOUS EPITHELIAL CELL,UR MOD /LPF
[2018-10-23 10:20] LABS: AMORPHOUS SEDIMENT,UR PRESENT /HPF; BACTERIA,URINE MODERATE /HPF (0-FEW)
[2018-10-23] MEDS ORDERED: PHEN100T82 PO (10:35)
[2018-10-23] MEDS ORDERED: CEPH500T PO (10:35)
--- NOTE | 2018-10-23 10:35 | PHYS DOC ---
Past Medical History Past Medical History: Hypertension, UTI (TADEOLORENZO Schmitz APRN) Past Surgical History: Cholecystectomy, (TADEOLORENZO Schmitz APRN) Alcohol Use: None Drug Use: None (KIRSTINLORENZO JOEY) Adult General Chief Complaint Chief Complaint: PAIN ON URINATION [facility] Patient is a 28 year old female with a history of hypertension, UTI, who presents to the ED today complaining of dysuria for 4 days. Patient also complaining of urinary urgency. Denies any frequency. Denies any abdominal pain , denies any nausea vomiting, denies any fever, denies any chance she is , she states she has the Implanon. (LORENZO FULTON NATURAL RESOURCES INSTRUCTOR) Review of Systems Review of Systems Constitutional: Denies fever or chills [] Eyes: Denies change in visual acuity, redness, or eye pain [] HENT: Denies nasal congestion or sore throat [] Respiratory: Denies cough or shortness of breath [] Cardiovascular: No additional information not addressed in HPI [] GI: Denies abdominal pain, nausea, vomiting, bloody stools or diarrhea [] : Reports dysuria and urgency, denies hematuria [] Musculoskeletal: Denies back pain or joint pain [] Integument: Denies rash or skin lesions [] Neurologic: Denies headache, focal weakness or sensory changes [] All other systems were reviewed and found to be within normal limits, except as documented in this note. (LORENZO FULTON APRN) Allergies Allergies Allergies Coded Allergies Type Severity Reaction Last Updated Verified No Known Drug Allergies 12/13/14 No (MAGGIE BELLO MD) Physical Exam Physical Exam Constitutional: Well developed, well nourished, no acute distress, non-toxic appearance. [] HENT: Normocephalic, atraumatic, bilateral external ears normal, oropharynx moist, no oral exudates, nose normal. [] Eyes: PERRLA, EOMI, conjunctiva normal, no discharge. [] Neck: Normal range of motion, no tenderness, supple, no stridor. [] Cardiovascular:Heart rate regular rhythm, no murmur [] Lungs & Thorax: Bilateral breath sounds clear to auscultation [] Abdomen: Bowel sounds normal, soft, no tenderness, no masses, no pulsatile masses. [] Skin: Warm, dry, no erythema, no rash. [] Back: No tenderness, no CVA tenderness. [] Extremities: No tenderness, no cyanosis, no clubbing, ROM intact, no edema. [] Neurologic: Alert and oriented X 3, normal motor function, normal sensory function, no focal deficits noted. [] Psychologic: Affect normal, judgement normal, mood normal. [] (LORENZO FULTON APRN) Current Patient Data Vital Signs Vital Signs Date Time Temp Pulse Resp B/P (MAP) Pulse Ox O2 Delivery O2 Flow Rate FiO2 10/23/18 09:34 98.3 92 16 173/85 (114) 99 Room Air 98.3 (MAGGIE BELLO MD) Lab Values Laboratory Tests Test 10/23/18 09:36 10/23/18 09:43 Urine Collection Type Void Urine Color Yellow Urine Clarity Clear Urine pH 6.0 Urine Specific [place] 1.020 Urine Protein Negative mg/dL (NEG-TRACE) Urine Glucose (UA) Negative mg/dL (NEG) Urine Ketones (Stick) Negative mg/dL (NEG) Urine Blood Large (NEG) Urine Nitrite Negative (NEG) Urine Bilirubin Negative (NEG) Urine Urobilinogen Dipstick 0.2 mg/dL (0.2 mg/dL) Urine Leukocyte Esterase Negative (NEG) Urine RBC 6-10 /HPF (0-2) Urine WBC 11-20 /HPF (0-4) Urine Squamous Epithelial Cells Mod /LPF Urine Amorphous Sediment Present /HPF Urine Bacteria Moderate /HPF (0-FEW) Urine Mucus Slight /LPF POC Urine HCG, Qualitative Hcg negative (Negative) (MAGGIE BELLO MD) EKG EKG [] (LORENZO FULTON APRN) Radiology/Procedures Radiology/Procedures [] (LORENZO FULTON APRN) Course & Med Decision Making Course & Med Decision Making Pertinent Labs and Imaging studies reviewed. (See chart for details) This is a 28-year-old female patient presenting to the ED today with UTI symptoms including urgency, dysuria. Negative urine hCG, urine analysis is noted for moderate amount of bacteria, 11-20 WBCs, moderate amount of squamous cells, no leukocytes or nitrites. Also noted for large amount of blood. Patient states she is spotting. She states she has been Implanon and has always had spotting on and off. Despite patient's urine being negative for leukocytes and nitrites. She has WBCs in her urine as well as bacteria. We sent it for culture. In the meantime she was discharged with cephalexin and Pyridium. (LORENZO FULTON APRN) Course & Med Decision Making Staff Physician Addendum: I was working in the ER during the course of this patient's visit. I was available for consultation as needed, but I was not directly involved in the care of this patient. (MAGGIE BELLO MD) Dragon Disclaimer Dragon Disclaimer This electronic medical record was generated, in whole or in part, using a voice recognition dictation system. (LORENZO FULTON APRN) Departure Departure Impression: Primary Impression: UTI (urinary tract infection) Disposition: HOME, SELF-CARE Condition: STABLE Referrals: NO PCP (PCP) Follow-up with your doctor in 1-2 weeks Patient Instructions: Urinary Tract Infection Additional Instructions: You were treated for urinary tract infection, ensure you complete your antibiotics. Push fluids. Take Tylenol/ Motrin for pain or fever. Follow-up with your doctor in 1-2 weeks. Scripts Cephalexin (CEPHALEXIN) 500 Mg Tablet 1 TAB PO BID, #14 TAB Prov: LORENZO FULTON APRN 10/23/18 Phenazopyridine Hcl (PYRIDIUM) 100 Mg Tablet 100 MG PO TID, #9 TAB Prov: LORENZO FULTON APRN 10/23/18 Problem Qualifiers Primary Impression: UTI (urinary tract infection) Urinary tract infection type: site unspecified Hematuria presence: without hematuria Qualified Codes: N39.0 - Urinary tract infection, site not specified LORENZO FULTON APRN Oct 23, 2018 10:35 MAGGIE BELLO MD Oct 23, 2018 12:03
== END 2018-10-23 11:04 | disposition home or self-care (01) ==
LOC: ER 09:30
DX: N39.0 Urinary tract infection, site not specified (principal); I10 Essential (primary) hypertension; Z90.49 Acquired absence of other specified parts of digestive tract; Z98.890 Other specified postprocedural states
CPT/HCPCS: 81001; 81025; 87086; 99283

== ENCOUNTER 2019-04-25 13:05 | Emergency (ER) | payer SELFPAY ==
[~2019-04-25] VITALS: Ht 160 cm; Wt 95.3 kg
[~2019-04-25 13:05] MED LIST changes: +CEPH500T PO; +PHEN100T82 PO
--- NOTE | 2019-04-25 13:52 | PHYS DOC ---
Past Medical History Past Medical History: Hypertension, UTI Past Surgical History: Cholecystectomy, Alcohol Use: None Drug Use: None Adult General Chief Complaint Chief Complaint: HEADACHE HPI HPI Patient is a 28 year old Female who presents with [is to begin having a frontal headache with left eye pain and slight blurriness in left eye. Patient states she does not have a history of migraines she's never had a headache that has felt like this before. Patient states she has nausea and light sensitivity. Patient rates her pain 8 out of 10 and states she took ibuprofen at 10 AM this morning which was 800 mg. Patient states the pain feels like a pressure. Review of Systems Review of Systems Constitutional: Denies fever or chills [] Eyes: Denies change in visual acuity, redness, or eye pain [] HENT: Denies nasal congestion or sore throat [] Respiratory: Denies cough or shortness of breath [] Cardiovascular: No additional information not addressed in HPI [] GI: Denies abdominal pain, +nausea, denies vomiting, bloody stools or diarrhea [ ] : Denies dysuria or hematuria [] Musculoskeletal: Denies back pain or joint pain [] Integument: Denies rash or skin lesions [] Neurologic: headache, light sensitivity, denies focal weakness or sensory changes [] Endocrine: Denies polyuria or polydipsia [] All other systems were reviewed and found to be within normal limits, except as documented in this note. Current Medications Current Medications Current Medications Medications (Trade) Dose Ordered Sig/Bigg Start Time Stop Time Status Last Admin Dose Admin Fentanyl Citrate (Fentanyl 2ml Vial) 50 mcg 1X ONCE 04/25/19 14:00 04/25/19 14:01 DC 04/25/19 14:07 50 MCG Prochlorperazine Edisylate (Compazine) 10 mg 1X ONCE 04/25/19 14:00 04/25/19 14:01 DC 04/25/19 14:07 10 MG Sodium Chloride 1,000 ml @ 1,000 mls/hr 1X ONCE 04/25/19 14:00 04/25/19 14:59 DC 04/25/19 14:07 1,000 MLS/HR Allergies Allergies Allergies Coded Allergies Type Severity Reaction Last Updated Verified No Known Drug Allergies 12/13/14 No Physical Exam Physical Exam Constitutional: Well developed, well nourished, no acute distress, non-toxic appearance. [] HENT: Normocephalic, atraumatic, bilateral external ears normal, oropharynx moist, no oral exudates, nose normal. [] Eyes: PERRLA, EOMI, conjunctiva normal, no discharge. Light sensitivity [] Neck: Normal range of motion, no tenderness, supple, no stridor. [] Cardiovascular:Heart rate regular rhythm, no murmur [] Lungs & Thorax: Bilateral breath sounds clear to auscultation [] Abdomen: Bowel sounds normal, soft, no tenderness, no masses, no pulsatile masses. [] Skin: Warm, dry, no erythema, no rash. [] Back: No tenderness, no CVA tenderness. [] Extremities: No tenderness, no cyanosis, no clubbing, ROM intact, no edema. [] Neurologic: Alert and oriented X 3, normal motor function, normal sensory function, no focal deficits noted. [] Psychologic: Affect normal, judgement normal, mood normal. [] Current Patient Data Vital Signs Vital Signs Date Time Temp Pulse Resp B/P (MAP) Pulse Ox O2 Delivery O2 Flow Rate FiO2 04/25/19 15:35 76 18 97 04/25/19 14:07 Room Air 04/25/19 13:10 97.7 162/106 (124) 97.7 Lab Values Laboratory Tests Test 04/25/19 13:10 04/25/19 13:23 04/25/19 14:00 04/25/19 14:45 Urine Collection Type Unknown Urine Color Yellow Urine Clarity Cloudy Urine pH 5.5 Urine Specific [place] 1.025 Urine Protein 30 mg/dL (NEG-TRACE) Urine Glucose (UA) Negative mg/dL (NEG) Urine Ketones (Stick) Negative mg/dL (NEG) Urine Blood Negative (NEG) Urine Nitrite Negative (NEG) Urine Bilirubin Negative (NEG) Urine Urobilinogen Dipstick 1.0 mg/dL (0.2 mg/dL) Urine Leukocyte Esterase Trace (NEG) Urine RBC 1-2 /HPF (0-2) Urine WBC 1-4 /HPF (0-4) Urine Squamous Epithelial Cells Mod /LPF Urine Bacteria Few /HPF (0-FEW) Urine Mucus Mod /LPF Urine Opiates Screen Neg (NEG) Urine Methadone Screen Neg (NEG) Urine Barbiturates Neg (NEG) Urine Phencyclidine Screen Neg (NEG) Urine Amphetamine/Methamphetamine Neg (NEG) Urine Benzodiazepines Screen Neg (NEG) Urine Cocaine Screen Neg (NEG) Urine Cannabinoids Screen Neg (NEG) Urine Ethyl Alcohol Neg (NEG) POC Urine HCG, Qualitative Hcg negative (Negative) White Blood Count 9.0 x10^3/uL (4.0-11.0) Red Blood Count 4.52 x10^6/uL (3.50-5.40) Hemoglobin 13.5 g/dL (12.0-15.5) Hematocrit 39.1 % (36.0-47.0) Mean Corpuscular Volume 86 fL (79-100) Mean Corpuscular Hemoglobin 30 pg (25-35) Mean Corpuscular Hemoglobin Concent 35 g/dL (31-37) Red Cell Distribution Width 13.6 % (11.5-14.5) Platelet Count 245 x10^3/uL (140-400) Neutrophils (%) (Auto) 62 % (31-73) Lymphocytes (%) (Auto) 27 % (24-48) Monocytes (%) (Auto) 7 % (0-9) Eosinophils (%) (Auto) 4 % (0-3) H Basophils (%) (Auto) 1 % (0-3) Neutrophils # (Auto) 5.6 x10^3/uL (1.8-7.7) Lymphocytes # (Auto) 2.4 x10^3/uL (1.0-4.8) Monocytes # (Auto) 0.6 x10^3/uL (0.0-1.1) Eosinophils # (Auto) 0.3 x10^3/uL (0.0-0.7) Basophils # (Auto) 0.1 x10^3/uL (0.0-0.2) Sodium Level 139 mmol/L (136-145) Potassium Level 3.6 mmol/L (3.5-5.1) Chloride Level 104 mmol/L (98-107) Carbon Dioxide Level 24 mmol/L (21-32) Anion Gap 11 (6-14) Blood Urea Nitrogen 8 mg/dL (7-20) Creatinine 0.7 mg/dL (0.6-1.0) Estimated GFR (Cockcroft-Gault) 99.6 BUN/Creatinine Ratio 11 (6-20) Glucose Level 104 mg/dL (70-99) H Calcium Level 8.7 mg/dL (8.5-10.1) Total Bilirubin 0.2 mg/dL (0.2-1.0) Aspartate Amino Transferase (AST) 27 U/L (15-37) Alanine Aminotransferase (ALT) 55 U/L (14-59) Alkaline Phosphatase 61 U/L (46-116) Total Protein 7.2 g/dL (6.4-8.2) Albumin 3.3 g/dL (3.4-5.0) L Albumin/Globulin Ratio 0.8 (1.0-1.7) L Laboratory Tests 04/25/19 14:00 Laboratory Tests 04/25/19 14:45 EKG EKG [] Radiology/Procedures Radiology/Procedures [] Impressions: [facility] [address] [place] [address] IMAGING REPORT Signed PATIENT: YOLY JOSEACCOUNT: [id number] : 1990 LOCATION: ER AGE: 28 SEX: F EXAM STATUS: REG ER ORD. PHYSICIAN: NAYELI FREED APRN REASON: HEADACHE PROCEDURE: CT HEAD WO CONTRAST CT HEAD WO CONTRAST History: Headache Comparison: January 17, 2017 Technique: Noncontrast CT imaging was performed of the head. Exposure: One or more of the following individualized dose reduction techniques were utilized for this examination: 1. Automated exposure control 2. Adjustment of the mA and/or kV according to patient size 3. Use of iterative reconstruction technique. Findings: No acute extra-axial or parenchymal hemorrhage is identified. There is no significant intra-axial mass effect, midline shift, or extra-axial fluid collection. The cruz-white differentiation of the major vascular territories is preserved. The ventricles, sulci, and cisterns are within normal limits in size and configuration. The mastoid air cells and the visualized paranasal sinuses are aerated. No acute calvarial abnormality is identified. Impression: 1. No acute intracranial abnormality is identified. Electronically signed by: Diego Tomlinson MD (04/25/2019 2:06 PM) [facility] DICTATED and SIGNED BY: DIEGO TOMLINSON MD DATE: 04/25/19 1406 Course & Med Decision Making Course & Med Decision Making Patient is a 28 year old Female who presents with [is to begin having a frontal headache with left eye pain and slight blurriness in left eye. Patient states she does not have a history of migraines she's never had a headache that has felt like this before. Patient states she has nausea and light sensitivity. Patient rates her pain 8 out of 10 and states she took ibuprofen at 10 AM this morning which was 800 mg. Patient states the pain feels like a pressure. Alert and oriented. Speaks in full clear sentences. Ambulatory with a steady gait. Skin pink warm and dry. Mucous membranes moist. Vital signs within normal limits. Afebrile. No neck pain. No recent illness. PERRLA. No extraocular movement pain. Abdomen soft and nontender. Lungs are clear to auscultation all lobes. Patient denies weaknesses, numbness or tingling, chest pain, dizziness, LOC, shortness of breath. She has a history of hypertension, [place], , UTI. Blood work unremarkable. Urinalysis does not show infection. Head CT shows no acute findings. Patient states her headache is much better after medications. Patient discharged home and to follow up with primary care provider. Diana Disclaimer Diana Disclaimer This electronic medical record was generated, in whole or in part, using a voice recognition dictation system. Departure Departure Impression: Primary Impression: Headache Disposition: 01 HOME, SELF-CARE Condition: STABLE Referrals: NO PCP (PCP) Patient Instructions: General Headache Without Cause, Migraine Headache Additional Instructions: Follow up with your primary care provider. Take medications if needed. Scripts Hydrocodone/Apap 5-325 (NORCO 5-325 TABLET) 1 Each Tablet 1 TAB PO PRN Q6HRS PRN for PAIN, #10 TAB 0 Refills Prov: NAYELI FREED PATTERN MAKER PROGRAMER 04/25/19 Ondansetron (ONDANSETRON ODT) 4 Mg Tab.rapdis 1 TAB PO PRN Q6-8HRS, #16 TAB Prov: NAYELI FREED PATTERN MAKER PROGRAMER 04/25/19 Problem Qualifiers Primary Impression: Headache Headache type: unspecified Headache chronicity pattern: acute headache Intractability: not intractable Qualified Codes: R51 - Headache NAYELI FREED PATTERN MAKER PROGRAMER Apr 25, 2019 13:52
[2019-04-25 13:58] LABS: BILIRUBIN,URINE NEGATIVE (NEG); CLARITY,URINE CLOUDY; COLOR,URINE YELLOW; NITRITE,URINE NEGATIVE (NEG); PH,URINE 5.5; PROTEIN,URINE 30 mg/dL (NEG-TRACE)
[2019-04-25] MEDS ORDERED: PROCHLORPERAZINE 10 MG/2 ML VIAL. IV ONE (14:00)
[2019-04-25] MEDS ORDERED: IV NORMAL SALINE 1000ML BAG 1,000 ML IV ONE (14:00)
[2019-04-25] MEDS ORDERED: fentaNYL PF VIAL 100 MCG/2 ML VIAL IV ONE (14:00)
[2019-04-25 14:03] LABS: BARBITURATES NEG (NEG); BENZODIAZEPINES NEG (NEG); CANNABINOIDS NEG (NEG); COCAINE NEG (NEG); METHADONE NEG (NEG); OPIATES NEG (NEG); PHENCYCLIDINE NEG (NEG)
--- NOTE | 2019-04-25 14:09 | RAD ---
CT HEAD WO CONTRAST History: Headache Comparison: January 17, 2017 Technique: Noncontrast CT imaging was performed of the head. Exposure: One or more of the following individualized dose reduction techniques were utilized for this examination: 1. Automated exposure control 2. Adjustment of the mA and/or kV according to patient size 3. Use of iterative reconstruction technique. Findings: No acute extra-axial or parenchymal hemorrhage is identified. There is no significant intra-axial mass effect, midline shift, or extra-axial fluid collection. The cruz-white differentiation of the major vascular territories is preserved. The ventricles, sulci, and cisterns are within normal limits in size and configuration. The mastoid air cells and the visualized paranasal sinuses are aerated. No acute calvarial abnormality is identified. Impression: 1. No acute intracranial abnormality is identified. Electronically signed by: Jakub Barron MD (04/25/2019 2:06 PM) [facility]
[2019-04-25 14:11] LABS: AMPHETAMINE/METHAMPHETAMINE NEG (NEG)
[2019-04-25 14:13] LABS: SQUAMOUS EPITHELIAL CELL,UR MOD /LPF
[2019-04-25 14:15] LABS: BASO # 0.1 x10^3/uL (0.0-0.2); BASO % 1 % (0-3); EOS # 0.3 x10^3/uL (0.0-0.7); EOS % 4 % (0-3); HEMATOCRIT 39.1 % (36.0-47.0); HEMOGLOBIN 13.5 g/dL (12.0-15.5); LYMPH # 2.4 x10^3/uL (1.0-4.8); LYMPH % 27 % (24-48); MEAN CORPUSCULAR HEMOGLOBIN 30 pg (25-35); MEAN CORPUSCULAR HGB CONC 35 g/dL (31-37); MEAN CORPUSCULAR VOLUME 86 fL (79-100); MONO # 0.6 x10^3/uL (0.0-1.1); MONO % 7 % (0-9); NEUT # 5.6 x10^3/uL (1.8-7.7); NEUT % 62 % (31-73); PLATELET COUNT 245 x10^3/uL (140-400); RED BLOOD COUNT 4.52 x10^6/uL (3.50-5.40); RED CELL DISTRIBUTION WIDTH 13.6 % (11.5-14.5)
[2019-04-25 14:15] LABS: BACTERIA,URINE FEW /HPF (0-FEW)
[2019-04-25] MEDS ORDERED: ONDA4TAB12 PO (14:51)
[2019-04-25] MEDS ORDERED: HYDR-3164 PO (14:51)
[2019-04-25 15:07] LABS: CALCIUM 8.7 mg/dL (8.5-10.1); CREATININE 0.7 mg/dL (0.6-1.0); GFR 99.6; POTASSIUM 3.6 mmol/L (3.5-5.1)
[2019-04-25 15:12] LABS: ALBUMIN 3.3 g/dL (3.4-5.0); TOTAL BILIRUBIN 0.2 mg/dL (0.2-1.0)
[2019-04-25 15:29] LABS: ALBUMIN/GLOBULIN RATIO 0.8 (1.0-1.7); TOTAL PROTEIN 7.2 g/dL (6.4-8.2)
[2019-04-25 15:35] VITALS: BP 153/106
== END 2019-04-25 15:56 | disposition home or self-care (01) ==
LOC: ER 13:05
DX: R51 Headache (principal); H57.12 Ocular pain, left eye; R11.0 Nausea; I10 Essential (primary) hypertension; Z90.49 Acquired absence of other specified parts of digestive tract; Z98.890 Other specified postprocedural states
CPT/HCPCS: 36415; 70450; 80053; 80307; 81001; 81025; 85025; 87086; 96374; 96375; 99285; J0780; J3010; J7030

== ENCOUNTER 2020-02-24 01:24 | Emergency (ER) | payer OTHER ==
[~2020-02-24] VITALS: Ht 160 cm; Wt 104.6 kg
[2020-02-24] MEDS ORDERED: ORPH100T PO (02:01)
[2020-02-24] MEDS ORDERED: HYDR-3164 PO (02:01)
[2020-02-24] MEDS ORDERED: DICL50TA4 PO (02:01)
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
[2020-02-24 02:07] VITALS: BP 154/87
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
== END 2020-02-24 02:08 | disposition home or self-care (01) ==
LOC: ER 01:24
DX: S63.501A Unspecified sprain of right wrist, initial encounter (principal); S29.012A Strain of muscle and tendon of back wall of thorax, initial encounter; M54.5 Low back pain; M54.2 Cervicalgia; I10 Essential (primary) hypertension; F17.200 Nicotine dependence, unspecified, uncomplicated; Z90.49 Acquired absence of other specified parts of digestive tract; Z87.440 Personal history of urinary (tract) infections; V43.52XA Car driver injured in collision with other type car in traffic accident, initial encounter; Y92.488 Other paved roadways as the place of occurrence of the external cause; Y93.89 Activity, other specified; Y99.8 Other external cause status
CPT/HCPCS: 72040; 72072; 73110; 99284

== ENCOUNTER 2020-09-02 15:12 | Emergency (ER) | payer SELFPAY ==
[~2020-09-02] VITALS: Ht 160 cm; Wt 100.0 kg
[~2020-09-02 15:12] MED LIST changes: +DICL50TA4 PO; +ORPH100T PO
--- NOTE | 2020-09-02 15:57 | PHYS DOC ---
Past Medical History Past Medical History: Hypertension, UTI (TRINY SOTELO DO) Past Surgical History: Cholecystectomy, (TRINY SOTELO DO) Smoking Status: Current Every Day Smoker Alcohol Use: None Drug Use: None (TRINY SOTELO DO) General Adult EDM: Chief Complaint: ABDOMINAL PAIN HPI: HPI: Patient is a 30 year old female who presents to ER for evaluation of right flank pain that radiated to her right groin area for 4 days. Patient also has pain with urination and frequent urination. Patient denies any fever, no nausea vomiting. Patient denies any cough. Patient denies any vaginal bleeding or discharge. (TRINY SOTELO DO) Review of Systems: Review of Systems: Constitutional: Denies fever or chills. [] Eyes: Denies change in visual acuity. [] HENT: Denies nasal congestion or sore throat. [] Respiratory: Denies cough or shortness of breath. [] Cardiovascular: Denies chest pain or edema. [] GI: Positive for abdominal pain, no nausea vomiting, no diarrhea : Positive for dysuri and frequency. [] Musculoskeletal: Denies back pain or joint pain. [] Integument: Denies rash. [] Neurologic: Denies headache, focal weakness or sensory changes. [] Endocrine: Denies polyuria or polydipsia. [] Lymphatic: Denies swollen glands. [] Psychiatric: Denies depression or anxiety. [] (TRINY SOTELO DO) Heart Score: Risk Factors: Risk Factors: DM, Current or recent (<one month) smoker, HTN, HLP, family history of CAD, obesity. Risk Scores: Score 0 - 3: 2.5% MACE over next 6 weeks - Discharge Home Score 4 - 6: 20.3% MACE over next 6 weeks - Admit for Clinical Observation Score 7 - 10: 72.7% MACE over next 6 weeks - Early Invasive Strategies (TRINY SOTELO DO) Current Medications: Current Medications Medications (Trade) Dose Ordered Sig/Bigg Start Time Stop Time Status Last Admin Dose Admin Sodium Chloride 1,000 ml @ 1,000 mls/hr 1X ONCE 09/02/20 15:45 09/02/20 16:44 (TRINY SOTELO DO) Allergies: Allergies: Allergies Coded Allergies Type Severity Reaction Last Updated Verified No Known Drug Allergies 4/6/15 No (TRINY SOTELO DO) Physical Exam: PE: Constitutional: Well developed, well nourished, no acute distress, non-toxic appearance. [] HENT: Normocephalic, atraumatic, bilateral external ears normal, oropharynx moist, no oral exudates, nose normal. [] Eyes: PERRLA, EOMI, conjunctiva normal, no discharge. [] Neck: Normal range of motion, no tenderness, supple, no stridor. [] Cardiovascular:Heart rate regular rhythm, no murmur [] Lungs & Thorax: Bilateral breath sounds clear to auscultation [] Abdomen: Bowel sounds normal, soft, There is tenderness at RLQ, NO GUARDING, NO REBOUND, no masses, no pulsatile masses. [] Skin: Warm, dry, no erythema, no rash. [] Back: No tenderness, RIGHT CVA tenderness TO PALPATION. Extremities: No tenderness, no cyanosis, no clubbing, ROM intact, no edema. [] Neurologic: Alert and oriented X 3, normal motor function, normal sensory function, no focal deficits noted. [] Psychologic: Affect normal, judgement normal, mood normal. [] (TRINY SOTELO DO) Current Patient Data: Labs: Laboratory Tests Test 09/02/20 15:35 POC Urine HCG, Qualitative Hcg negative (Negative) (TRINY SOTELO DO) Labs: Laboratory Tests Test 09/02/20 15:35 09/02/20 15:55 09/02/20 16:00 Bedside Urine HCG, Qualitative Hcg negative Urine Collection Type Void Urine Color Yellow Urine Clarity Cloudy Urine pH 6.0 Urine Specific [place] >=1.030 Urine Protein 30 mg/dL Urine Glucose (UA) Negative mg/dL Urine Ketones (Stick) Negative mg/dL Urine Blood Large Urine Nitrite Negative Urine Bilirubin Negative Urine Urobilinogen Dipstick 0.2 mg/dL Urine Leukocyte Esterase Moderate Urine RBC Occ /HPF Urine WBC 11-20 /HPF Urine Squamous Epithelial Cells Many /LPF Urine Bacteria Many /HPF Urine Mucus Mod /LPF White Blood Count 9.4 x10^3/uL Red Blood Count 4.56 x10^6/uL Hemoglobin 13.1 g/dL Hematocrit 39.1 % Mean Corpuscular Volume 86 fL Mean Corpuscular Hemoglobin 29 pg Mean Corpuscular Hemoglobin Concent 34 g/dL Red Cell Distribution Width 14.4 % Platelet Count 252 x10^3/uL Neutrophils (%) (Auto) 61 % Lymphocytes (%) (Auto) 29 % Monocytes (%) (Auto) 6 % Eosinophils (%) (Auto) 4 % Basophils (%) (Auto) 0 % Neutrophils # (Auto) 5.7 x10^3/uL Lymphocytes # (Auto) 2.8 x10^3/uL Monocytes # (Auto) 0.5 x10^3/uL Eosinophils # (Auto) 0.4 x10^3/uL Basophils # (Auto) 0.0 x10^3/uL Sodium Level 141 mmol/L Potassium Level 3.6 mmol/L Chloride Level 104 mmol/L Carbon Dioxide Level 25 mmol/L Anion Gap 12 Blood Urea Nitrogen 12 mg/dL Creatinine 0.7 mg/dL Estimated GFR (Cockcroft-Gault) 98.3 BUN/Creatinine Ratio 17 Glucose Level 141 mg/dL Calcium Level 8.7 mg/dL Total Bilirubin 0.1 mg/dL Aspartate Amino Transf (AST/SGOT) 22 U/L Alanine Aminotransferase (ALT/SGPT) 52 U/L Alkaline Phosphatase 69 U/L Total Protein 6.8 g/dL Albumin 3.4 g/dL Albumin/Globulin Ratio 1.0 Lipase 177 U/L Current Medications Medications (Trade) Dose Ordered Sig/Bigg Route PRN Reason Start Time Stop Time Status Last Admin Dose Admin Sodium Chloride 1,000 ml @ 1,000 mls/hr 1X ONCE IV 09/02/20 15:45 09/02/20 16:44 DC 09/02/20 16:10 Ketorolac Tromethamine (Toradol 30mg Vial) 30 mg 1X ONCE IVP 09/02/20 16:15 09/02/20 16:16 DC 09/02/20 16:13 Iohexol (Omnipaque 300 Mg/ml) 75 ml 1X ONCE IV 09/02/20 16:45 09/02/20 16:46 DC 09/02/20 16:55 Info (CONTRAST GIVEN -- Rx MONITORING) 1 each PRN DAILY PRN MC SEE COMMENTS 09/02/20 16:45 09/04/20 16:44 Morphine Sulfate (Morphine Sulfate) 4 mg 1X ONCE IV 09/02/20 17:00 09/02/20 17:01 DC 09/02/20 17:04 Ceftriaxone Sodium (Rocephin) 1 gm 1X ONCE IVP 09/02/20 17:00 09/02/20 17:01 DC 09/02/20 17:05 Tamsulosin HCl (Flomax) 0.4 mg 1X ONCE PO 09/02/20 17:00 09/02/20 17:01 DC 09/02/20 17:05 Hydromorphone HCl (Dilaudid) 1 mg 1X ONCE IVP 09/02/20 18:15 09/02/20 18:18 DC 09/02/20 18:23 Vital Signs: Vital Signs Date Time Temp Pulse Resp B/P (MAP) Pulse Ox O2 Delivery O2 Flow Rate FiO2 09/02/20 15:30 97.4 84 20 162/79 (106) 96 Room Air 97.4 (NNAMDI CANAS MD) EKG: EKG: [] (TRINY SOTELO DO) Radiology/Procedures: Radiology/Procedures: [][facility] [address] [place] [address] IMAGING REPORT Signed PATIENT: YOLY JOSEACCOUNT: [id number] : 1990 LOCATION: ER AGE: 30 SEX: F EXAM STATUS: REG ER ORD. PHYSICIAN: TRINY SOTELO DO REASON: RIGHT SIDE ABDOMINAL PAIN FOR 4 DAYS PROCEDURE: CT ABD PELV W/ IV CONTRST ONLY Exam performed: CT abdomen and pelvis without contrast HISTORY: Right-sided abdominal pain for 4 days. DATE OF SERVICE: 09/02/2020. COMPARISON: None available TECHNIQUE: Contiguous helical acquisitions are obtained through the abdomen and pelvis without IV contrast. Sagittal and coronal reformatted images are obtained and reviewed. FINDINGS: Lung bases. Visualized heart is normal. Unopacified liver, spleen, pancreas appear normal. Cholecystectomy. Both adrenal glands and bilateral kidneys are normal in size. Small bowel loops are nondilated and unremarkable. There is extensive scattered stool throughout the colon. The visualized appendix is normal. No inflammatory changes seen in the right lower quadrant. There is a 4.3 x 4.1 cm cyst in the right adnexa likely physiological. The uterus is anteverted. No free fluid or pelvic lymphadenopathy seen. The bones are grossly normal. IMPRESSION: 4.3 x 4.1 cm cyst in the right adnexa/ovary likely physiological. Appendix is normal. Extensive scattered stool throughout the colon. Correlate clinically for constipation. RS Compliance Statement: One or more of the following individualized dose reduction techniques were utilized for this examination: 1. Automated exposure control 2. Adjustment of the mA and/or kV according to patient size 3. Use of iterative reconstruction technique Electronically signed by: Thao Dawson MD (09/02/2020 5:16 PM) [facility] DICTATED and SIGNED BY: THAO DAWSON MD DATE: 09/02/[id number] 0 (TRINY SOTELO DO) Radiology/Procedures: [facility] [address] [place] [address] IMAGING REPORT Signed PATIENT: YOLY JOSEACCOUNT: [id number] : 1990 LOCATION: ER AGE: 30 SEX: F EXAM STATUS: REG ER ORD. PHYSICIAN: TRINY SOTELO DO REASON: RIGHT SIDE PELVIC PAIN, RIGHT SIDE LOWER ABDOMINAL PAIN PROCEDURE: PELVIS COMPLETE Exam: Ultrasound pelvis complete Indication: Right-sided pelvic pain Technique: Real-time grayscale and color Doppler images of the pelvis were obtained by the department auto top mechanic. Comparisons: None FINDINGS: Uterus measures 8.2 x 4.9 x 3.3 cm. Endometrium is 3 mm in thickness. Right ovary measures 6.4 x 4.2 x 3.9 cm. Left ovary measures 3.7 x 2.4 x 2.0 cm. Vascular flow identified within the ovaries bilaterally. No free fluid identified in the pelvis. IMPRESSION: 1. Large right ovarian cyst. No evidence for ovarian torsion. 2. Normal sonographic appearance the liver. Electronically signed by: Gayla Giang MD (09/02/2020 7:39 PM) [id number] DICTATED and SIGNED BY: GAYLA GIANG MD DATE: 09/02/[id number] 0 (NNAMDI CANAS MD) Course & Med Decision Making: Course & Med Decision Making Pertinent Labs and Imaging studies reviewed. (See chart for details) Patient is a 30-year-old female who presented to ER for evaluation of right abdominal pain with urinary symptom. Her lab work showed that she had evidence urinary tract infection with blood in her urine. CT scan her abdomen pelvis with IV contrast showed that she had a 4 cm cyst on the right adnexal area and scattered amount of stool in the colon. Patient required narcotic for pain control in the ER. Will obtain a pelvic ultrasound to evaluate the cyst to evaluate for torsion. Patient was given IV fluid, IV Toradol, IV morphine, IV Rocephin in the ER. Her care was endorsed to incoming physician at shift change, Dr. Nnamdi Canas. We discussed history and physical examination with lab work, CT scan results and pending ultrasound of her pelvis. Dr. Canas will make final diagnosis and disposition. (TRINY SOTELO DO) Course & Med Decision Making 30-year-old female presents with right lower quadrant pain. Patient is a seen by Dr. Sotelo and signed over to me. Patient has a negative test and CT reveals no kidney stones. Patient does have urinary tract infection and a large right ovarian cyst. Ultrasound was done and there is no evidence of ovarian torsion. Patient reassessed at approximately 7:15 PM and pain better after Dilaudid. Patient will go home on pain medicines as well as antibiotics. Patient to follow-up with a [employer] ATTENDANT. Return precautions given. (NNAMDI CANAS MD) Dragon Disclaimer: Dragon Disclaimer: This electronic medical record was generated, in whole or in part, using a voice recognition dictation system. (TRINY SOTELO DO) Departure Departure Impression: Primary Impression: Abdominal pain Additional Impressions: UTI (urinary tract infection) Ovarian cyst, right RLQ abdominal pain Disposition: 01 DC HOME SELF CARE/HOMELESS Condition: STABLE Referrals: NO PCP (PCP) LORE YOUNGBLOOD MD 2-3 days Patient Instructions: Abdominal Pain, Ovarian Cyst Additional Instructions: EMERGENCY DEPARTMENT GENERAL DISCHARGE INSTRUCTIONS THANK YOU for coming to [facility] Emergency Department (ED) today and trusting us with your care. We trust that you had a positive experience in our Emergency Department. If you wish to speak to the department Management you can contact the soaping department supervisor at . YOUR FOLLOW UP INSTRUCTIONS ARE FOLLOWS: Do you have a private doctor? If you do not have a private doctor, please ask for a resource list of physicians or clinics that may be able to assist you with follow up care. The Emergency Physician has interpreted your x-rays. The X-ray specialist will also review them. If there is a change in the findings you will be notified in 48 hours when at all possible. A lab test or lab culture may have been done, your results will be reviewed and you will be notified if you need a change in treatment. ADDITIONAL INSTRUCTIONS AND INFORMATION Your care today has been supervised by a physician who is specially trained in emergency care. Many problems require more than one evaluation for a complete diagnosis and treatment. We recommend that you schedule your follow up appointment as recommended to ensure complete treatment of your illness or injury. If you are unable to obtain follow up care and continue to have a problem, or if your condition worsens we recommend that you return to the ED. We are not able to safely determine your condition over the phone nor are we able to give sound medical advice over the phone. For these safety reasons, if you call for medical advice we will ask you to come to the ED for further evaluation If you have any questions regarding these discharge instructions please call the ED at . SAFETY INFORMATION In the interest of safety, wellness, and injury prevention; we encourage you to wear your seatbelt, if you smoke; quit smoking, and we encourage your family to use protective helmet for bicycling and other sporting events that present an increased risk for head injury. IF YOUR SYMPTOMS WORSEN OR NEW SYMPTOMS DEVELOP, OR YOU HAVE CONCERNS ABOUT YOUR CONDITION; OR IF YOUR CONDITION WORSENS WHILE YOU ARE WAITING FOR YOUR FOLLOW UP APPOINTMENT; EITHER CONTACT YOUR PRIMARY CARE DOCTOR, THE PHYSICIAN WHOSE NAME AND NUMBER YOU WERE GIVEN, OR RETURN TO THE ED IMMEDIATELY. Scripts Ibuprofen (IBUPROFEN) 600 Mg Tablet 600 MG PO PRN Q6HRS PRN for INFLAMMATION, #30 TAB Prov: NNAMDI CANAS MD 09/02/20 Ondansetron Hcl (ZOFRAN) 4 Mg Tablet 1 TAB PO Q6HRS for nausea, #12 TAB Prov: NNAMDI CANAS MD 09/02/20 Nitrofurantoin Monohyd/M-Cryst (MACROBID 100 MG CAPSULE) 100 Mg Capsule 1 CAP PO BID for 7 Days, #14 CAP 0 Refills Prov: NNAMDI CANAS MD 09/02/20 Hydrocodone/Apap 10-325 (NORCO 10-325 TABLET) 1 Each Tablet 1 TAB PO QID for pain, #15 TAB Prov: NNAMDI CANAS MD 09/02/20 TRINY SOTELO DO Sep 02, 2020 15:57 NNAMDI CANAS MD Sep 02, 2020 18:32
[2020-09-02] MEDS: IV NORMAL SALINE 1000ML BAG 1,000 ML IV ONE (16:10)
[2020-09-02] MEDS: KETOROLAC 30 MG/ML VIAL. IVP ONE (16:13)
[2020-09-02 16:20] LABS: BILIRUBIN,URINE NEGATIVE (NEG); CLARITY,URINE CLOUDY; COLOR,URINE YELLOW; NITRITE,URINE NEGATIVE (NEG); PROTEIN,URINE 30 mg/dL (NEG-TRACE); UROBILINOGEN,URINE 0.2 mg/dL (0.2 mg/dL)
[2020-09-02 16:20] LABS: BASO % 0 % (0-3); EOS # 0.4 x10^3/uL (0.0-0.7); EOS % 4 % (0-3); HEMATOCRIT 39.1 % (36.0-47.0); HEMOGLOBIN 13.1 g/dL (12.0-15.5); LYMPH # 2.8 x10^3/uL (1.0-4.8); LYMPH % 29 % (24-48); MEAN CORPUSCULAR HEMOGLOBIN 29 pg (25-35); MEAN CORPUSCULAR HGB CONC 34 g/dL (31-37); MEAN CORPUSCULAR VOLUME 86 fL (79-100); MONO # 0.5 x10^3/uL (0.0-1.1); MONO % 6 % (0-9); NEUT # 5.7 x10^3/uL (1.8-7.7); NEUT % 61 % (31-73); PLATELET COUNT 252 x10^3/uL (140-400); RED BLOOD COUNT 4.56 x10^6/uL (3.50-5.40); RED CELL DISTRIBUTION WIDTH 14.4 % (11.5-14.5); WHITE BLOOD COUNT 9.4 x10^3/uL (4.0-11.0)
[2020-09-02 16:27] LABS: BACTERIA,URINE MANY /HPF (0-FEW)
[2020-09-02 16:30] LABS: CALCIUM 8.7 mg/dL (8.5-10.1); CREATININE 0.7 mg/dL (0.6-1.0); GFR 98.3; POTASSIUM 3.6 mmol/L (3.5-5.1)
[2020-09-02 16:31] LABS: RBC,URINE OCC /HPF (0-2)
[2020-09-02 16:36] LABS: ALBUMIN 3.4 g/dL (3.4-5.0); TOTAL BILIRUBIN 0.1 mg/dL (0.2-1.0); TOTAL PROTEIN 6.8 g/dL (6.4-8.2)
[2020-09-02] MEDS ORDERED: CONTRAST GIVEN. MC PRN (16:45)
[2020-09-02] MEDS: IOHEXOL 300 MG/ML 100ML VIAL. IV ONE (16:55)
[2020-09-02] MEDS: MORPHINE SULFATE 4 MG/ML VIAL. IV ONE (17:04)
[2020-09-02] MEDS: cefTRIAXone IV Push 1 GM VIAL. IVP ONE (17:05)
[2020-09-02] MEDS: TAMSULOSIN 0.4 MG CAP.ER.24H. PO ONE (17:05)
--- NOTE | 2020-09-02 17:18 | RAD ---
Exam performed: CT abdomen and pelvis without contrast HISTORY: Right-sided abdominal pain for 4 days. DATE OF SERVICE: 09/02/2020. COMPARISON: None available TECHNIQUE: Contiguous helical acquisitions are obtained through the abdomen and pelvis without IV con trast. Sagittal and coronal reformatted images are obtained and reviewed. FINDINGS: Lung bases. Visualized heart is normal. Unopacified liver, spleen, pancreas appear normal. Cholecystectomy. Both adrenal glands and bilateral kidneys are normal in size. Small bowel loops are nondilated and unremarkable. There is extensive sc attered stool throughout the colon. The visualized appendix is normal. No inflammatory changes seen i n the right lower quadrant. There is a 4.3 x 4.1 cm cyst in the right adnexa likely physiological. Th e uterus is anteverted. No free fluid or pelvic lymphadenopathy seen. The bones are grossly normal. IMPRESSION: 4.3 x 4.1 cm cyst in the right adnexa/ovary likely physiological. Appendix is normal. Extensive scattered stool throughout the colon. Correlate clinically for constipation. PQRS Compliance Statement: One or more of the following individualized dose reduction techniques were utilized for this examinat ion: 1. Automated exposure control 2. Adjustment of the mA and/or kV according to patient size 3. Use of iterative reconstruction technique Electronically signed by: Thao Dawson MD (09/02/2020 5:16 PM) [facility]
[2020-09-02] MEDS: HYDROmorphone 2 MG/ML VIAL IVP ONE (18:23)
--- NOTE | 2020-09-02 19:41 | RAD ---
Exam: Ultrasound pelvis complete Indication: Right-sided pelvic pain Technique: Real-time grayscale and color Doppler images of the pelvis were obtained by the department content designer. Comparisons: None FINDINGS: Uterus measures 8.2 x 4.9 x 3.3 cm. Endometrium is 3 mm in thickness. Right ovary measures 6.4 x 4.2 x 3.9 cm. Left ovary measures 3.7 x 2.4 x 2.0 cm. Vascular flow identified within the ovaries bilaterally. No free fluid identified in the pelvis. IMPRESSION: 1. Large right ovarian cyst. No evidence for ovarian torsion. 2. Normal sonographic appearance the liver. Electronically signed by: Gayla Varma MD (09/02/2020 7:39 PM) [id number]
[2020-09-02] MEDS ORDERED: ONDA4TAB7 PO (19:57)
[2020-09-02] MEDS ORDERED: HYDR-3135 PO (19:57)
[2020-09-02] MEDS ORDERED: NITR100C62 PO (19:57)
[2020-09-02] MEDS ORDERED: IBUP-1007 PO (19:57)
[2020-09-02 20:09] VITALS: BP 154/83
== END 2020-09-02 20:30 | disposition home or self-care (01) ==
LOC: ER 15:12
DX: N39.0 Urinary tract infection, site not specified (principal); R10.31 Right lower quadrant pain; N83.291 Other ovarian cyst, right side; R35.0 Frequency of micturition; I10 Essential (primary) hypertension; F17.200 Nicotine dependence, unspecified, uncomplicated; Z90.49 Acquired absence of other specified parts of digestive tract; Z98.890 Other specified postprocedural states
CPT/HCPCS: 36415; 74177; 76856; 80053; 81001; 81025; 83690; 85025; 87086; 96361; 96374; 96375; 99285; J0696; J1170; J1885; J2270; J7030; Q9967

== ENCOUNTER 2021-04-17 04:27 | Emergency (ER) | payer SELFPAY ==
[~2021-04-17] VITALS: Ht 157.5 cm; Wt 102.0 kg
[~2021-04-17 04:27] MED LIST changes: +HYDR-3135 PO; +IBUP-1007 PO; +NITR100C62 PO; +ONDA4TAB7 PO
[2021-04-17] MEDS ORDERED: KETOROLAC 15 MG/ML VIAL. IVP ONE (05:00)
[2021-04-17] MEDS ORDERED: IV NORMAL SALINE 1000ML BAG 1,000 ML IV ONE (05:00)
--- NOTE | 2021-04-17 05:05 | PHYS DOC ---
Past Medical History Past Medical History: Hypertension, UTI Past Surgical History: Cholecystectomy, Smoking Status: Current Every Day Smoker Alcohol Use: None Drug Use: None General Adult EDM: Chief Complaint: SHORTNESS OF BREATH Problems: (1) Shortness of breath HPI: HPI: 30-year-old female with no past medical history reported presents to the emergency department complaining of fatigue, shortness of breath for the past several days along with chest pressure associated with the shortness of breath. She denies any history of blood clots in the past, no recent travel, admits to mild cough. She was denies any for Covid last week and is due for her second shot in a few weeks. The patient denies radiation of pain, sweating, nausea, vomiting, palpitations or dizziness. Review of Systems: Review of Systems: Constitutional: Denies fever or chills. Admits to fatigue Eyes: Denies change in vision, pain. HENT: Denies congestion or sore throat. Respiratory: Admits to cough and shortness of breath. Cardiovascular: Admits to chest pain, denies leg swelling. GI: Denies abdominal pain, nausea. : Denies change in urination, dysuria. Musculoskeletal: Denies extremity pain, or trauma. Skin: Denies rash, skin change. Neurologic: Denies headache, focal weakness. Psychiatric: Denies depression or anxiety. All other systems reviewed as negative except for what was mentioned in the HPI. Heart Score: C/O Chest Pain: Yes HEART Score for Chest Pain: HEART Score for Chest Pain Response (Comments) Value History Slighlty/Non-Suspicious 0 ECG Normal 0 Age < 45 0 Risk Factors No Risk Factors 0 Total 0 Family History: Family History: Negative Current Medications: Current Medications Medications (Trade) Dose Ordered Sig/[facility] Start Time Stop Time Status Last Admin Dose Admin Ketorolac Tromethamine (Toradol 15mg Vial) 15 mg 1X ONCE 04/17/21 05:00 04/17/21 05:01 Sodium Chloride 1,000 ml @ 1,000 mls/hr 1X ONCE 04/17/21 05:00 04/17/21 05:59 Allergies: Allergies: Allergies Coded Allergies Type Severity Reaction Last Updated Verified No Known Drug Allergies 12/13/14 No Physical Exam: PE: Constitutional: No acute distress, non-toxic appearance. HENT: Atraumatic, bilateral external ears normal, nose normal. Eyes: PERRLA, EOMI, conjunctiva normal, no discharge. Neck: Normal range of motion, supple, no stridor. Cardiovascular: Heart rate regular rhythm. 2+ radial pulses Lungs & Thorax: No respiratory distress, symmetrical expansion. Bilateral breath sounds clear to auscultation Abdomen: Soft, no tenderness Skin: Warm, dry. Extremities: No tenderness, no cyanosis, ROM intact, no edema. Neurologic: Alert and oriented X 3, normal motor function, normal sensory function, no focal deficits noted. Non ataxic gait. GCS 15. Psychologic: Affect normal, judgment normal, mood normal. Current Patient Data: Labs: Laboratory Tests Test 04/17/21 04:36 04/17/21 04:58 Bedside Urine HCG, Qualitative Hcg negative (Negative) SARS-CoV-2 Antigen (Rapid) Negative (NEGATIVE) Vital Signs: Vital Signs Date Time Temp Pulse Resp B/P (MAP) Pulse Ox O2 Delivery O2 Flow Rate FiO2 04/17/21 04:36 97.3 78 11 162/98 (106) 99 Room Air 97.3 EKG: EKG: Normal sinus rhythm rate of 70, no ST-T wave changes, no ectopic beats, normal axis, normal MI, QRS, and QTc intervals. Impression: Normal EKG. interpreted by Jameel vizcaino D.O. Radiology/Procedures: Radiology/Procedures: No airspace disease, infiltrates or consolidations, lung pina clear. No pneumothorax or pleural effusion. Cardiac silhouette within normal limits. No widening of mediastinum. No obvious free air seen. Impression: normal CXR. Interpreted by Jameel vizcaino D.O. Course & Med Decision Making: Course & Med Decision Making Patient is overall well-appearing, her Covid test today was negative, chest x- ray looked within normal limits and EKG was also within normal limits. Her he art score is low and she does not appear to be in ACS. Pain is likely musculoskeletal versus GERD. I discussed the treatment options with the patient along with return precautions. Departure Departure Impression: Primary Impression: Nonspecific chest pain Disposition: HOME / SELF CARE / HOMELESS Condition: GOOD Referrals: NO PCP (PCP) Patient Instructions: Chest Pain (Nonspecific), [id number] Additional Instructions: You were seen in the emergency department for chest pain. Your exam and testing did not show any acute abnormality that warranted admission today but does not rule out underlying cardiovascular disease. You need to follow up with your primary doctor and/or cardiology for further evaluation. Return to the Emergency Department immediately, day or night, if you have worsening or continued chest pain, shortness of breath, nausea, sweating during chest pain, trouble breathing, chest pain with exertion (climbing stairs or walking for example), leg swelling or for any other concerns. JAMEEL RANGEL DO Apr 17, 2021 05:05
[2021-04-17 05:36] VITALS: BP 151/89
--- NOTE | 2021-04-17 06:04 | RAD ---
Study: XR CHEST 1V Indication: Chest pain. Comparison: 05/19/2018 Findings: The cardiomediastinal silhouette and [place] are within normal limits. No localized airspace opacity, pl eural effusion or pneumothorax. Impression: No acute radiographic abnormality of the chest. No relevant change from the May 19, 2018 compar jennifer. Electronically signed by: ENID NAVA MD (04/17/2021 6:01 AM) [facility]
--- NOTE | 2021-04-17 06:30 | EKG ---
[facility] [address] [place] [address] Test Date: 2021-04-17 Test Time: 04:44:45 Pat Name: YOLY EVANSANGELANAHEED Department: Room: Gender: F Beam House Inspector: : 1990 Requested By: MAGGIE RANGEL Order Number: [id number] Reading MD: Measurements Intervals [place] Rate: 70 P: 48 TN: 176 QRS: 42 QRSD: 86 T: 36 QT: 396 QTc: 430 Interpretive Statements SINUS RHYTHM NORMAL ECG RI6.02 No previous ECG available for comparison
== END 2021-04-17 06:03 | disposition home or self-care (01) ==
LOC: ER 04:27
DX: U07.1 COVID-19 (principal); R07.89 Other chest pain; I10 Essential (primary) hypertension; F17.200 Nicotine dependence, unspecified, uncomplicated; Z87.440 Personal history of urinary (tract) infections; Z90.49 Acquired absence of other specified parts of digestive tract; Z98.890 Other specified postprocedural states
CPT/HCPCS: 71045; 81025; 87426; 93005; 96361; 96374; 99285; J1885; J7030; U0003; U0005

== ENCOUNTER 2021-06-18 15:34 | Emergency (ER) | payer SELFPAY ==
[~2021-06-18] VITALS: Ht 160 cm; Wt 110.0 kg
[2021-06-18 17:19] LABS: BILIRUBIN,URINE NEGATIVE (NEG); CLARITY,URINE CLEAR; NITRITE,URINE POSITIVE (NEG); PROTEIN,URINE 30 mg/dL (NEG-TRACE); UROBILINOGEN,URINE 0.2 mg/dL (0.2 mg/dL)
[2021-06-18 17:25] LABS: BACTERIA,URINE MANY /HPF (0-FEW); COLOR,URINE DK YELLOW
[2021-06-18 17:26] LABS: WBC,URINE TNTC /HPF (0-4)
--- NOTE | 2021-06-18 17:45 | PHYS DOC ---
Past Medical History Past Medical History: Hypertension, UTI Additional Past Medical Histor: psoriasis Past Surgical History: Cholecystectomy, Smoking Status: Current Every Day Smoker Alcohol Use: None Drug Use: None General Adult EDM: Chief Complaint: FLANK PAIN HPI: HPI: Patient is a 30 year old female with history of hypertension who presents to the ED today complaining of 9 out of 10 right flank pain, with hematuria symptoms have been going on for 3 days. Patient denies any nausea, vomiting or diarrhea. Denies anything specific and exacerbating relieving the pain. Denies any personal or family history of kidney stones. Review of Systems: Review of Systems: Constitutional: Denies fever or chills. [] Eyes: Denies change in visual acuity. [] HENT: Denies nasal congestion or sore throat. [] Respiratory: Denies cough or shortness of breath. [] Cardiovascular: Denies chest pain or edema. [] GI: Denies abdominal pain, nausea, vomiting, bloody stools or diarrhea. [] : Reports right flank pain with hematuria denies dysuria. [] Musculoskeletal: Denies back pain or joint pain. [] Integument: Denies rash. [] Neurologic: Denies headache, focal weakness or sensory changes. [] Psychiatric: Denies depression or anxiety. [] Heart Score: C/O Chest Pain: N/A Risk Factors: Risk Factors: DM, Current or recent (<one month) smoker, HTN, HLP, family history of CAD, obesity. Risk Scores: Score 0 - 3: 2.5% MACE over next 6 weeks - Discharge Home Score 4 - 6: 20.3% MACE over next 6 weeks - Admit for Clinical Observation Score 7 - 10: 72.7% MACE over next 6 weeks - Early Invasive Strategies Current Medications: Current Medications Medications (Trade) Dose Ordered Sig/Bigg Start Time Stop Time Status Last Admin Dose Admin Acetaminophen/ Hydrocodone Bitart (Lortab 5/325) 1 tab 1X ONCE 06/18/21 17:15 06/18/21 17:22 DC Ondansetron HCl (Zofran Odt) 4 mg 1X ONCE 06/18/21 17:15 06/18/21 17:22 DC Allergies: Allergies: Allergies Coded Allergies Type Severity Reaction Last Updated Verified No Known Drug Allergies 12/13/14 No Physical Exam: PE: Constitutional: Well developed, well nourished, no acute distress, non-toxic appearance. [] HENT: Normocephalic, atraumatic, bilateral external ears normal, oropharynx moist, no oral exudates, nose normal. [] Eyes: PERRLA, EOMI, conjunctiva normal, no discharge. [] Neck: Normal range of motion, no tenderness, supple, no stridor. [] Cardiovascular:Heart rate regular rhythm, no murmur [] Lungs & Thorax: Bilateral breath sounds clear to auscultation [] Abdomen: Bowel sounds normal, soft, no tenderness, no masses, no pulsatile masses. [] Skin: Warm, dry, no erythema, no rash. [] Back: No tenderness,mild right CVA tenderness. [] Extremities: No tenderness, no cyanosis, no clubbing, ROM intact, no edema. [] Neurologic: Alert and oriented X 3, normal motor function, normal sensory function, no focal deficits noted. [] Psychologic: Affect normal, judgement normal, mood normal. [] Current Patient Data: Labs: Laboratory Tests Test 06/18/21 17:05 06/18/21 17:09 Urine Collection Type Void Urine Color Dk yellow Urine Clarity Clear Urine pH 6.0 (<5.0-8.0) Urine Specific [place] 1.025 (1.000-1.030) Urine Protein 30 mg/dL (NEG-TRACE) Urine Glucose (UA) Negative mg/dL (NEG) Urine Ketones (Stick) Negative mg/dL (NEG) Urine Blood Negative (NEG) Urine Nitrite Positive (NEG) Urine Bilirubin Negative (NEG) Urine Urobilinogen Dipstick 0.2 mg/dL (0.2 mg/dL) Urine Leukocyte Esterase Moderate (NEG) Urine RBC 1-2 /HPF (0-2) Urine WBC Tntc /HPF (0-4) Urine Squamous Epithelial Cells Few /LPF Urine Bacteria Many /HPF (0-FEW) Urine Mucus Mod /LPF POC Urine HCG, Qualitative Hcg negative (Negative) Vital Signs: Vital Signs Date Time Temp Pulse Resp B/P (MAP) Pulse Ox O2 Delivery O2 Flow Rate FiO2 06/18/21 17:04 97.8 83 18 163/80 (107) 100 Room Air 97.8 EKG: EKG: [] Radiology/Procedures: Radiology/Procedures: [] Course & Med Decision Making: Course & Med Decision Making Pertinent Labs and Imaging studies reviewed. (See chart for details) This is a 30-year-old female patient presented to the ED today with right flank pain with hematuria, symptoms began 3 days ago. Negative urine hCG, UA positive for UTI, CT of the abdomen and pelvic noted for left 2 mm left renal calculus. No ureteral calculi. Discharged on cephalexin. Follow-up with PCP or urologist in 1 week. Provided return precautions and discharged in stable condition. Diana Disclaimer: Diana Disclaimer: This electronic medical record was generated, in whole or in part, using a voice recognition dictation system. Departure Departure Impression: Primary Impression: UTI (urinary tract infection) Qualified Codes: N39.0 - Urinary tract infection, site not specified Additional Impression: Kidney stone on left side Disposition: HOME / SELF CARE / HOMELESS Condition: STABLE Referrals: NO PCP (PCP) follow up with your primary care doctor and urologist in 1-2 weeks Patient Instructions: Kidney Stones, [id number], Urinary Tract Infection Additional Instructions: You have urinary tract infection and a 2 mm kidney stone in your kidney. We sent antibiotics to your pharmacy. Take them as prescribed until completed. Follow- up with your primary care doctor or urologist of your chest in 1 to 2 weeks. Scripts Phenazopyridine Hcl (PYRIDIUM) 100 Mg Tablet 1 TAB PO TID for urinary discomfort for 3 Days, #9 TAB 0 Refills Prov: LORENZO FULTON PET STYLIST 06/18/21 Diclofenac Potassium (DICLOFENAC POTASSIUM) 50 Mg Tablet 1 TAB PO BID, #20 TAB 1 Refill Prov: LORENZO FULTON PET STYLIST 06/18/21 Cephalexin (CEPHALEXIN) 500 Mg Tablet 1 TAB PO BID, #14 TAB Prov: LORENZO FULTON PET STYLIST 06/18/21 LORENZO FULTON APRN Jun 18, 2021 17:45
[2021-06-18] MEDS: ONDANSETRON ODT 4 MG TAB.RAPDIS. PO ONE (17:49)
[2021-06-18] MEDS: HYDROcodone/APAP 5/325MG 1 TAB TABLET PO ONE (17:49)
--- NOTE | 2021-06-18 19:36 | RAD ---
EXAM: CT ABDOMEN/PELVIS WITHOUT CONTRAST. HISTORY: Flank pain, hematuria. TECHNIQUE: Computed tomography of the abdomen and pelvis was performed without intravenous contrast. One or more of the following individualized dose reduction techniques were utilized for this examinat ion: 1. Automated exposure control. 2. Adjustment of the mA and/or kV according to patient size. 3. Use of iterative reconstruction technique. COMPARISON: 09/02/2020. FINDINGS: Lung windows through the visualized portions of the bases reveal no abnormality. Bone windo ws reveal no suspicious lesions. The gallbladder is surgically absent. Hypoattenuation of the hepatic parenchyma indicates at least mi ld diffuse hepatic steatosis. The spleen, pancreas and adrenal glands are unremarkable. There are no pathologically enlarged lymph nodes. A calculus in the left renal interpolar region measures 2 mm. There are no ureteral calculi or hydron ephrosis. There are no suspicious renal lesions without contrast. The appendix is not inflamed. There is no small bowel obstruction. IMPRESSION: 1. 2 mm left renal calculus. No ureteral calculi. 2. Diffuse hepatic steatosis. Electronically signed by: Elissa Torrez MD (06/18/2021 7:33 PM) [facility]
[2021-06-18 19:38] VITALS: BP 158/98
[2021-06-18] MEDS ORDERED: PHEN100T82 PO (19:45)
[2021-06-18] MEDS ORDERED: DICL50TA2 PO (19:45)
[2021-06-18] MEDS ORDERED: CEPH500T PO (19:45)
== END 2021-06-18 20:13 | disposition home or self-care (01) ==
LOC: ER 15:34
DX: N39.0 Urinary tract infection, site not specified (principal); N20.0 Calculus of kidney; I10 Essential (primary) hypertension; F17.200 Nicotine dependence, unspecified, uncomplicated; Z87.440 Personal history of urinary (tract) infections; Z90.49 Acquired absence of other specified parts of digestive tract; Z98.890 Other specified postprocedural states
CPT/HCPCS: 74176; 81001; 81025; 87086; 99285

== ENCOUNTER 2021-09-04 14:39 | Emergency (ER) | payer OTHER ==
[~2021-09-04] VITALS: Ht 157.5 cm; Wt 103.6 kg
[~2021-09-04 14:39] MED LIST changes: +DICL50TA2 PO
[2021-09-04] MEDS ORDERED: fentaNYL PF VIAL 100 MCG/2 ML VIAL IVP ONE ×2 (17:15→21:30)
[2021-09-04] MEDS ORDERED: IV NORMAL SALINE 1000ML BAG 1,000 ML IV SCH (17:15)
--- NOTE | 2021-09-04 17:44 | RAD ---
XR CHEST 1V Clinical Indication: Reason: FEVER / Spl. Instructions: / History: Comparison: AP chest April 17, 2021. Findings: Patient is rotated. The cardiomediastinal silhouette is normal. Lungs are clear. There is no pneumoth orax. No pleural effusion is appreciated. No acute bone abnormality. IMPRESSION: No acute cardiopulmonary process. Electronically signed by: Leeroy Lechuga MD (09/04/2021 5:42 PM) [facility]
[2021-09-04 17:59] LABS: BASO % 0 % (0-3); EOS # 0.1 x10^3/uL (0.0-0.7); EOS % 2 % (0-3); HEMATOCRIT 26.4 % (36.0-47.0); HEMOGLOBIN 8.4 g/dL (12.0-15.5); LYMPH # 1.4 x10^3/uL (1.0-4.8); LYMPH % 22 % (24-48); MEAN CORPUSCULAR HEMOGLOBIN 28 pg (25-35); MEAN CORPUSCULAR HGB CONC 32 g/dL (31-37); MEAN CORPUSCULAR VOLUME 88 fL (79-100); MONO # 0.6 x10^3/uL (0.0-1.1); MONO % 9 % (0-9); NEUT # 4.2 x10^3/uL (1.8-7.7); NEUT % 67 % (31-73); PLATELET COUNT 401 x10^3/uL (140-400); RED BLOOD COUNT 3.01 x10^6/uL (3.50-5.40); RED CELL DISTRIBUTION WIDTH 15.3 % (11.5-14.5); WHITE BLOOD COUNT 6.2 x10^3/uL (4.0-11.0)
[2021-09-04] MEDS ORDERED: IOHEXOL 300 MG/ML 100ML VIAL. IV ONE (18:00)
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
[2021-09-04 18:11] LABS: CALCIUM 8.5 mg/dL (8.5-10.1); CREATININE 0.7 mg/dL (0.6-1.0); GFR 97.6; POTASSIUM 3.8 mmol/L (3.5-5.1)
[2021-09-04] MEDS ORDERED: CONTRAST GIVEN. MC PRN (18:15)
[2021-09-04 18:16] LABS: ALBUMIN 3.4 g/dL (3.4-5.0); ALBUMIN/GLOBULIN RATIO 0.8 (1.0-1.7); TOTAL BILIRUBIN 0.2 mg/dL (0.2-1.0); TOTAL PROTEIN 7.6 g/dL (6.4-8.2)
--- NOTE | 2021-09-04 19:33 | RAD ---
CT ABDOMEN+PELVIS W History: Fever, nausea and vomiting. Comparison: CT abdomen and pelvis 06/18/2021 Technique: CT of the abdomen and pelvis with intravenous contrast. Findings: The lung bases are clear. Diffuse hypodensity liver compatible steatosis. Status post cholecystectomy without biliary ductal dilatation. The pancreas, spleen, adrenal glands, and kidneys are unremarkabl e. The bladder, uterus and adnexa are within normal limits. Stomach and small bowel are unremarkable. Normal appendix. No colonic wall thickening or pericolonic inflammatory changes. No intra-abdominal free air or free fluid. No adenopathy. The vasculature is wi thin normal limits. Soft tissues are unremarkable. No acute or suspicious osseous lesion. Impression: 1. No acute findings in the abdomen and pelvis. 2. Hepatic steatosis. ------ Exposure: One or more of the following individualized dose reduction techniques were utilized for thi s examination: 1. Automated exposure control 2. Adjustment of the mA and/or kV according to patient size 3. Use of iterative reconstruction technique. Electronically signed by: Vick Escamilla MD (09/04/2021 7:31 PM) [facility]
[2021-09-04 19:40] VITALS: BP 150/82
[2021-09-04 20:57] LABS: BILIRUBIN,URINE NEGATIVE (NEG); CLARITY,URINE CLEAR; COLOR,URINE YELLOW; NITRITE,URINE NEGATIVE (NEG); PROTEIN,URINE NEGATIVE (NEG-TRACE)
[2021-09-04 21:15] LABS: AMORPHOUS SEDIMENT,UR PRESENT /HPF
[2021-09-04 21:16] LABS: RBC,URINE OCC /HPF (0-2)
[2021-09-04 21:18] LABS: BACTERIA,URINE FEW /HPF (0-FEW)
[2021-09-04] MEDS ORDERED: HYDR-2761 PO (21:21)
== END 2021-09-04 21:39 | disposition home or self-care (01) ==
LOC: ER 14:39
DX: M79.605 Pain in left leg (principal); R11.2 Nausea with vomiting, unspecified; R19.7 Diarrhea, unspecified; I10 Essential (primary) hypertension; Z87.440 Personal history of urinary (tract) infections; Z90.49 Acquired absence of other specified parts of digestive tract; Z98.890 Other specified postprocedural states
CPT/HCPCS: 36415; 71045; 74177; 80053; 81001; 83605; 85025; 87040; 96361; 96374; 96376; 99285; J3010; J7030; Q9967

== ENCOUNTER 2022-01-27 13:26 | Emergency (ER) | payer SELFPAY ==
[~2022-01-27] VITALS: Ht 165.1 cm; Wt 113.0 kg
[~2022-01-27 13:26] MED LIST changes: +HYDR-2761 PO
[2022-01-27] MEDS: KETOROLAC 30 MG/ML VIAL. IVP ONE (14:07)
[2022-01-27] MEDS: IV RINGERS,LACTATED 1000ML 1,000 ML IV SCH (14:07)
[2022-01-27] MEDS: ONDANSETRON PF 4 MG/2 ML VIAL. IVP ONE (14:08)
[2022-01-27 14:14] LABS: AMORPHOUS SEDIMENT,UR PRESENT /HPF
[2022-01-27 14:15] LABS: BACTERIA,URINE MODERATE /HPF (0-FEW); RBC,URINE 0 /HPF (0-2)
[2022-01-27 14:43] LABS: CALCIUM 8.7 mg/dL (8.5-10.1); CREATININE 0.8 mg/dL (0.6-1.0); GFR 83.7; POTASSIUM 3.8 mmol/L (3.5-5.1)
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
[2022-01-27 14:47] LABS: PREG TEST PT QUAL NEGATIVE (NEG)
[2022-01-27 14:49] LABS: ALBUMIN 3.4 g/dL (3.4-5.0); ALBUMIN/GLOBULIN RATIO 0.8 (1.0-1.7); TOTAL BILIRUBIN 0.2 mg/dL (0.2-1.0); TOTAL PROTEIN 7.5 g/dL (6.4-8.2)
[2022-01-27 15:23] LABS: BASO % 1 % (0-3); EOS # 0.6 x10^3/uL (0.0-0.7); EOS % 6 % (0-3); HEMATOCRIT 37.7 % (36.0-47.0); HEMOGLOBIN 11.7 g/dL (12.0-15.5); LYMPH # 2.6 x10^3/uL (1.0-4.8); LYMPH % 29 % (24-48); MEAN CORPUSCULAR HEMOGLOBIN 24 pg (25-35); MEAN CORPUSCULAR HGB CONC 31 g/dL (31-37); MEAN CORPUSCULAR VOLUME 76 fL (79-100); MONO # 0.7 x10^3/uL (0.0-1.1); MONO % 7 % (0-9); NEUT # 5.3 x10^3/uL (1.8-7.7); NEUT % 57 % (31-73); PLATELET COUNT 306 x10^3/uL (140-400); RED BLOOD COUNT 4.96 x10^6/uL (3.50-5.40); RED CELL DISTRIBUTION WIDTH 21.5 % (11.5-14.5); WHITE BLOOD COUNT 9.2 x10^3/uL (4.0-11.0)
[2022-01-27 16:38] LABS: ANISOCYTOSIS MOD; HYPOCHROMIA SLIGHT; PLT ESTIMATE ADEQUATE (ADEQUATE)
[2022-01-27 16:55] VITALS: BP 166/94
[2022-01-27] MEDS ORDERED: CEFD300C PO (17:17)
[2022-01-27] MEDS: cefTRIAXone IV Push 1 GM VIAL. IVP ONE (17:19)
[2022-01-27] MEDS ORDERED: MORPHINE SULFATE 4 MG/ML INJ. IV PRN (17:30)
== END 2022-01-27 17:48 | disposition home or self-care (01) ==
LOC: ER 13:26
DX: N30.01 Acute cystitis with hematuria (principal); I10 Essential (primary) hypertension
CPT/HCPCS: 36415; 80053; 81001; 81025; 83690; 84703; 85025; 87086; 96361; 96374; 96375; 99284; J0696; J1885; J2405; J7120